=== PATIENT | female | born 1945 | race Caucasian/White ===

== ENCOUNTER 2017-04-15 18:15 | Emergency (ER) | payer MEDICARE ==
[2017-04-15 18:21] VITALS: BP 134/82; PULSE 84; RESP 18; TEMP 97.2
--- NOTE | 2017-04-15 19:13 | XR ---
Fifth digit right hand HISTORY: Trauma and pain 3 views of the fifth digit of the right hand No comparisons There are degenerative changes present and noted incidentally. Soft tissue swelling is present. There is an oblique fracture through the midportion of the proximal phalanx of the fifth digit of the righ t hand. There is right displacement and angulation. IMPRESSION: Fifth digit fracture
--- NOTE | 2017-04-15 19:15 | ED ---
General Adult HPI - General Chief complaint: Extremity Injury, Upper Stated complaint: Pinky Injury Time Seen by Provider: 04/15/17 18:50 Source: patient Mode of arrival: ambulatory Limitations: no limitations - History of Present Illness Initial comments: This is a 71-year-old female who presents to the emergency department with chief complaint of right pinky injury. Patient states that at approximately 3 PM this afternoon she was getting out of her car and her pinky got caught on something as she was closing the door. She states that she felt a "crack." Patient states that over the last few hours her pinky has become swollen and bruised. Currently rates her pain as 3/10. Denies fever, chills, chest pain, shortness of breath, abdominal pain, nausea or vomiting, constipation or diarrhea, dysuria or hematuria, numbness or tingling, headache or vision changes. - Related Data Home Medications Medication Instructions Recorded Confirmed Albuterol Sulfate [Proair Hfa] 2 puff INHALATION RT-Q6H PRN 04/12/16 04/16/16 Calcium Carbonate [Calcium] 600 mg PO DAILY 04/12/16 04/16/16 Hydrocodone/Acetaminophen [[place]roy 1 tab PO TID 04/12/16 04/16/16 7.5-325] Ibuprofen [Motrin] 400 - 800 mg PO BID PRN 04/12/16 04/16/16 Losartan Potassium [Cozaar] 50 mg PO DAILY 04/12/16 04/16/16 Multivit-Min/FA/Lycopen/Lutein 1 tab PO DAILY 04/12/16 04/16/16 [Centrum Silver Tablet] Omeprazole [PriLOSEC] 20 mg PO AC-BRKFST 04/12/16 04/16/16 Zolpidem [Ambien] 10 mg PO HS 04/12/16 04/16/16 Solifenacin Succinate [Vesicare] 5 mg PO DAILY 04/16/16 04/16/16 DULoxetine HCL [Cymbalta] 30 mg PO BID 04/15/17 04/15/17 Fenofibrate,Micronized 134 mg PO DAILY 04/15/17 04/15/17 [Fenofibrate] Allergies Allergy/AdvReac Type Severity Reaction Status Date / Time cefadroxil [From [facility] [place]] Allergy Rash/Hives Verified 04/15/17 18:18 Review of Systems ROS Statement: Those systems with pertinent positive or pertinent negative responses have been documented in the HPI. ROS Other: All systems not noted in ROS Statement are negative. Past Medical History Past Medical History: Asthma, Fibromyalgia, GERD/Reflux, Hyperlipidemia, Hypertension, Osteoarthritis (OA) Additional Past Medical History / Comment(s): Hypertension and hypertensive cardio vascular disease, hyperlipidemia, mitral regurgitation, fibromyalgia, ALLERGIC rhinitis, asthma, obesity, chronic low back pain, carotid artery disease, osteoarthritis, overactive bladder, vitamin D deficiency. History of Any Multi-Drug Resistant Organisms: None Reported Additional Past Surgical History / Comment(s): rt knee replacement, rt wrist fusion, isha cataracts, breast biopsy,TOTAL RT HIP and rotator cuff tear repair bilaterally . Past Psychological History: No Psychological Hx Reported Smoking Status: Never smoker Past Alcohol Use History: Occasional Past Drug Use History: None Reported - Past Family History Mother Family Medical History: Cancer, Coronary Artery Disease (CAD) (Mother at age of 86 from heart disease and colon cancer.) Father Family Medical History: Cancer (Father at age of 86 from lung cancer and colon cancer.) Brother(s) Family Medical History: Cancer (Patient had 3 brothers one with colon cancer the other one with CAD/[place] and the third one with diabetes. Decided to.) Sister(s) Family Medical History: No Reported History (Patient has one sister major medical problems.) General Exam - General Exam Comments Initial Comments: General: Awake and alert, well-developed; in no apparent distress. HEENT: Head atraumatic, normocephalic. Pupils are equal, round and reactive to light. Extraocular movements intact. Neck: Supple. Normal ROM. Cardiovascular: Regular rate and rhythm. No murmurs, rubs or gallops. Chest symmetrical. Respiratory: Lungs clear to auscultation bilaterally. No wheezes, rales or rhonchi. Normal respiratory effort with no use of accessory muscles. Musculoskeletal: Right fifth digit is moderately swollen with ecchymosis throughout. Range of motion is limited due to swelling and pain. Sensation is intact. Radial pulses 2+ equal and palpable bilaterally. Skin: [place], warm and dry without rashes or lesions. Neurological: Alert and oriented x3. CN II-XII grossly intact. Speech is fluent and answers are appropriate. No focal neuro deficits. Psychiatric: Normal mood and affect. No overt signs of depression or anxiety noted. Limitations: no limitations Course Vital Signs 04/15/17 18:18 Temperature 97.2 F L Pulse Rate 84 Respiratory 18 Rate Blood Pressure 134/82 O2 Sat by Pulse 97 Oximetry Medical Decision Making - Medical Decision Making This is a 71-year-old female who presents with complaint of right fifth digit injury. X-ray reveals a fracture of the proximal phalanx of the fifth digit. Patient was placed in a short arm OCL ulnar gutter splint. Neurovascular is intact. Patient tolerated this well. Patient will be discharged home. Patient reports that she has seen Dr. Yaron Nicholas in the past for other hand issues and would like a referral to him for followup. Patient refuses pain medication as she states she has fibromyalgia and has a prescription for Troy at home. Patient is in agreement to the plan and is in no acute distress at this time. All questions were answered. - Radiology Data Radiology results: report reviewed X-ray right finger findings: There are degenerative changes present and noted incidentally. Soft tissue swelling is present. There is an oblique fracture through the midportion of the proximal phalanx of the fifth digit of the right hand. There is right displacement and angulation. Disposition Clinical Impression: Fracture, finger, distal phalanx Disposition: HOME SELF-CARE Condition: Good Instructions: Finger Fracture (ED) Additional Instructions: Please follow up with orthopedics within 1-2 days. Contact information provided. Please follow up with primary care provider within 1-2 days. Return to emergency department if symptoms should worsen or any concerns arise. Referrals: Jacqueline Berry MD [Primary Care Provider] - 1-2 days Yaron Nicholas DO [Doctor of Osteopathic Medicine] - 1-2 days Time of Disposition: 19:39
== END 2017-04-15 19:45 | disposition home or self-care (01) ==
LOC: EC 18:15
DX: S62.616A Displaced fracture of proximal phalanx of right little finger, initial encounter for closed fracture (principal); E78.5 Hyperlipidemia, unspecified; I10 Essential (primary) hypertension; I25.10 Atherosclerotic heart disease of native coronary artery without angina pectoris; K21.9 Gastro-esophageal reflux disease without esophagitis; N32.81 Overactive bladder; M79.7 Fibromyalgia; E66.9 Obesity, unspecified; Z79.891 Long term (current) use of opiate analgesic; Z79.899 Other long term (current) drug therapy; Z68.34 Body mass index [BMI] 34.0-34.9, adult; W22.8XXA Striking against or struck by other objects, initial encounter; Y93.89 Activity, other specified
CPT/HCPCS: 29125; 99283

== ENCOUNTER 2017-10-16 10:00 | Emergency (ER) | payer MEDICARE ==
--- NOTE | 2017-10-16 12:00 | ED ---
Extremity Problem HPI - General Chief complaint: Extremity Problem,Nontraumatic Stated complaint: LEFT KNEE PAIN Time Seen by Provider: 10/16/17 11:20 Source: patient, RN notes reviewed Mode of arrival: ambulatory Limitations: physical limitation - History of Present Illness Initial comments: This is a 71-year-old female presents emergency Department with chief complaint of left knee pain. She's been having worsening pain last few weeks especially last 10 days. She states that she initially saw her primary care physician told her she most likely has a Bartholomew's cyst. She complained of Cramping and pain behind her knee. Patient physician at that time. Patient states roughly 10 days ago she stepped wrong and felt that she may have injured it. She's been babying it, icing and elevating and using her cane. Patient states that symptoms are not getting better she has an appointment coming up with orthopedics. She states that she's had problems with her regular past but nothing the left. - Related Data Home Medications Medication Instructions Recorded Confirmed Albuterol Sulfate [Proair Hfa] 2 puff INHALATION RT-Q6H PRN 04/12/16 10/16/17 Calcium Carbonate [Calcium] 600 mg PO DAILY 04/12/16 10/16/17 Hydrocodone/Acetaminophen [Bendena 1 tab PO TID PRN 04/12/16 10/16/17 7.5-325] Losartan Potassium [Cozaar] 50 mg PO DAILY 04/12/16 10/16/17 Omeprazole [PriLOSEC] 20 mg PO AC-BRKFST 04/12/16 10/16/17 Zolpidem [Ambien] 10 mg PO HS 04/12/16 10/16/17 DULoxetine HCL [Cymbalta] 30 mg PO BID 04/15/17 10/16/17 Fenofibrate Nanocrystallized 145 mg PO DAILY 10/16/17 10/16/17 [Tricor] Mirabegron [Myrbetriq] 25 mg PO DAILY 10/16/17 10/16/17 Multivitamins, Thera [Multivitamin 1 tab PO DAILY 10/16/17 10/16/17 (formulary)] Previous Rx's Medication Instructions Recorded Hydrocodone/Acetaminophen [Bendena 1 tab PO Q6HR PRN #12 tab 10/16/17 5-325] Allergies Allergy/AdvReac Type Severity Reaction Status Date / Time cefadroxil [From [facility]] Allergy Rash/Hives Verified 10/16/17 11:29 Review of Systems ROS Statement: Those systems with pertinent positive or pertinent negative responses have been documented in the HPI. ROS Other: All systems not noted in ROS Statement are negative. Past Medical History Past Medical History: Asthma, Fibromyalgia, GERD/Reflux, Hyperlipidemia, Hypertension, Osteoarthritis (OA) Additional Past Medical History / Comment(s): Hypertension and hypertensive cardio vascular disease, hyperlipidemia, mitral regurgitation, fibromyalgia, ALLERGIC rhinitis, asthma, obesity, chronic low back pain, carotid artery disease, osteoarthritis, overactive bladder, vitamin D deficiency. History of Any Multi-Drug Resistant Organisms: None Reported Additional Past Surgical History / Comment(s): rt knee replacement, rt wrist fusion, isha cataracts, breast biopsy,TOTAL RT HIP and rotator cuff tear repair bilaterally . Past Psychological History: No Psychological Hx Reported Smoking Status: Never smoker Past Alcohol Use History: Occasional Past Drug Use History: None Reported - Past Family History Mother Family Medical History: Cancer, Coronary Artery Disease (CAD) (Mother at age of 86 from heart disease and colon cancer.) Father Family Medical History: Cancer (Father at age of 86 from lung cancer and colon cancer.) Brother(s) Family Medical History: Cancer (Patient had 3 brothers one with colon cancer the other one with CAD/[place] and the third one with diabetes. Decided to.) Sister(s) Family Medical History: No Reported History (Patient has one sister major medical problems.) General Exam Limitations: physical limitation General appearance: alert, in no apparent distress Respiratory exam: Present: normal lung sounds bilaterally. Absent: respiratory distress, wheezes, rales, rhonchi, stridor Cardiovascular Exam: Present: regular rate, normal rhythm, normal heart sounds. Absent: systolic murmur, diastolic murmur, rubs, gallop, clicks Extremities exam: Present: other (Left knee patient has some medial joint tenderness no pain with range of motion neurovascular intact there is mild swelling no the left leg) Skin exam: Present: warm, dry, intact, normal color. Absent: rash Course Vital Signs 10/16/17 10:04 Temperature 97.8 F Pulse Rate 83 Respiratory 20 Rate Blood Pressure 142/67 O2 Sat by Pulse 96 Oximetry Medical Decision Making - Medical Decision Making This a 71-year-old female presents emergency department chief complaint of left knee pain. Patient ultrasound which is negative for acute DVT. Patient x-ray shows mild narrowing of the tricompartment region. Patient may have underlying meniscus injury. Patient has an appointment with orthopedics. Patiently discharges with Tylenol according for pain control patient denied ibuprofen. Return parameters discussed. Disposition Clinical Impression: Left knee pain, Strain of left knee Disposition: HOME SELF-CARE Condition: Stable Instructions: Knee Pain (ED) Additional Instructions: Follow-up later schedule point with orthopedics.Please return to the Emergency Department if symptoms worsen or any other concerns. Prescriptions: Hydrocodone/Acetaminophen [Bendena 5-325] 1 tab PO Q6HR PRN #12 tab PRN Reason: Pain Is patient prescribed a controlled substance at discharge?: Yes If prescribed controlled substance>3 days was MAPS reviewed?: No When asked, does pt state using other controlled substances?: No Referrals: Jacqueline Berry MD [Primary Care Provider] - 1-2 days Time of Disposition: 13:26
--- NOTE | 2017-10-16 13:03 | US ---
EXAMINATION TYPE: US venous doppler duplex LE LT DATE OF EXAM: 10/16/2017 12:47 PM COMPARISON: NONE CLINICAL HISTORY: Pain. Left leg pain x 10 days SIDE PERFORMED: Left TECHNIQUE: The lower extremity deep venous system is examined utilizing real time linear array sonog kym with graded compression, doppler sonography and color-flow sonography. VESSELS IMAGED: External Iliac Vein (EIV) Common Femoral Vein Deep Femoral Vein Greater Saphenous Vein * Femoral Vein Popliteal Vein Small Saphenous Vein * Proximal Calf Veins (* superficial vessels) Grayscale, color doppler, spectral doppler imaging performed of the deep veins of the lower extremiti es. There is normal flow, compressibility, vascular waveforms. Left Leg: Appears negative for DVT IMPRESSION: No evidence for DVT at this time.
--- NOTE | 2017-10-16 13:10 | XR ---
EXAMINATION TYPE: XR knee complete LT DATE OF EXAM: 10/16/2017 CLINICAL HISTORY: pain TECHNIQUE: Three views of the left knee are obtained. COMPARISON: None. FINDINGS: There is no acute fracture/dislocation. The tri-compartment joint spaces appear moderatel y narrowed. The overlying soft tissue appears unremarkable. IMPRESSION: There is no acute fracture or dislocation ICD 10 NO FRACTURE, INITIAL EVALUATION
[2017-10-16 13:34] VITALS: BP 128/62; PULSE 74; RESP 18; TEMP 98.4
== END 2017-10-16 13:34 | disposition home or self-care (01) ==
LOC: EC 10:00
DX: S86.812A Strain of other muscle(s) and tendon(s) at lower leg level, left leg, initial encounter (principal); M79.89 Other specified soft tissue disorders; K21.9 Gastro-esophageal reflux disease without esophagitis; E78.5 Hyperlipidemia, unspecified; I10 Essential (primary) hypertension; E66.9 Obesity, unspecified; Z68.33 Body mass index [BMI] 33.0-33.9, adult; Z79.899 Other long term (current) drug therapy; Z88.1 Allergy status to other antibiotic agents
CPT/HCPCS: 99284

== ENCOUNTER → 2018-04-01 | Outpatient (CLI) | payer MEDICARE ==
--- NOTE | 2018-04-01 15:43 | BD ---
EXAMINATION TYPE: Axial Bone Density DATE OF EXAM: 04/01/2018 COMPARISON: 03/08/2016 CLINICAL HISTORY: 72-year-old female osteoporosis, postmenopausal screening Height: 65 IN Weight: 224 LBS RISK FACTORS HISTORY OF: Surgery to Hip(right) WRIST (right): When: HIP 2015; WRIST 1993 Active: YES Postmenopausal woman: AGE 51 Take estrogen and/or progesterone medications: NOT NOW How long: HAD A PATCH FROM AGE 50-60 MEDICATIONS: Additional Medications: CALCIUM, CYMBALTA, TRICOR, LOSARTAN, AMBIEN, VITAMIN, MYRBETRIQ, EXAM MEASUREMENTS: Bone mineral densitometry was performed using the [employer] System. Bone mineral density as measured about the Lumbar spine is: ----- L1-L4(G/cm2): 1.405 T Score Values are as follows: ----- L2: 1.9 ----- L3: 2.3 ----- L4: 1.6 ----- L1-L4: 1.9 Bone mineral density has: Increased 1.1% since study of: 03/08/2016 Bone mineral density about the L hip (g/cm2): 0.856 T Score values are as follows: -----L Neck: -1.3 -----L Total: -0.9 Bone mineral density has: Decreased -5.1% since study of: 03/08/2016 IMPRESSION: Osteopenia (T Score between -2.5 and -1). There is slightly increased risk of fracture and the patient may be considered for treatment. Re-Screen 2-5 years. NOTE: T-SCORE=SD OF THE YOUNG ADULT MEAN.
--- NOTE | 2018-04-03 10:23 | MM ---
Reason for exam: screening (asymptomatic). Last mammogram was performed 1 year ago. History: Patient is postmenopausal. Benign right mammotome panel of the right breast, November 19, 2010. 3 benign excisional biopsies of the left breast. 4 benign excisional biopsies of the right breast. Took estrogen for 10 years beginning at age 50. Physical Findings: A clinical breast exam by your physician is recommended on an annual basis and results should be correlated with mammographic findings. MG 3D Screening Mammo W/Cad Bilateral CC and MLO view(s) were taken. Prior study comparison: March 24, 2017, bilateral MG 3d screening mammo w/cad. March 18, 2016, bilateral MG 3d screening mammo w/cad. The breast tissue is heterogeneously dense. This may lower the sensitivity of mammography. Finding: There is a focal high rchitectural distortion in the middle position of the left breast MLO view. New finding since March 24, 2017 and March 18, 2016. ASSESSMENT: Incomplete: need additional imaging evaluation, BI-RAD 0 RECOMMENDATION: Special view mammogram of the left breast. If lesion persists on supplemental views, image directed ultrasound is recommended. [facility] will attempt to contact patient to return for supplemental views and ultrasound if indicated.
== END | disposition home or self-care (01) ==
LOC: RADMAMWWP 14:33
PROVIDERS: ATTEND Internal Medicine
DX: Z12.31 Encounter for screening mammogram for malignant neoplasm of breast (principal); M85.88 Other specified disorders of bone density and structure, other site
CPT/HCPCS: 77063; 77067; 77080

== ENCOUNTER → 2018-04-16 | Outpatient (CLI) | payer MEDICARE ==
--- NOTE | 2018-04-16 13:35 | MM ---
Reason for exam: additional evaluation requested from abnormal screening. Last mammogram was performed less than 1 month ago. History: Patient is postmenopausal. Benign right mammotome panel of the right breast, November 19, 2010. 3 benign excisional biopsies of the left breast. 4 benign excisional biopsies of the right breast. Took estrogen for 10 years beginning at age 50. Physical Findings: Nurse did not find any significant physical abnormalities on exam. MG 3D Work Up W/Cad LT Spot compression CC, spot compression MLO, and ML view(s) were taken of the left breast. Prior study comparison: April 01, 2018, bilateral MG 3d screening mammo w/cad. March 24, 2017, bilateral MG 3d screening mammo w/cad. There are scattered fibroglandular densities. The questioned asymmetric density disperses on additional views. These results were verbally communicated with the patient and result sheet given to the patient on 04/16/18. ASSESSMENT: Negative, BI-RAD 1 RECOMMENDATION: Return to routine screening mammogram schedule for both breasts.
== END | disposition home or self-care (01) ==
LOC: RADMAMWWP 12:53
PROVIDERS: ATTEND Internal Medicine
DX: R92.8 Other abnormal and inconclusive findings on diagnostic imaging of breast (principal)
CPT/HCPCS: 77065; G0279; 77061

== ENCOUNTER 2018-06-19 12:30 | Inpatient (IN) | payer MEDICARE ==
[2018-07-15 15:23] VITALS: BMI 37.0
[2018-07-20] MEDS ORDERED: TRANEXAMIC ACID 1,000 MG in SODIUM CHLORIDE 0.9% 50 ML IVPB ONE ×4 (05:00)
[2018-07-20] MEDS ORDERED: ceFAZolin IN SWFI 2 GM/20 ML SYRINGE IVP ONE (05:00)
[2018-07-20] MEDS ORDERED: ACETAMINOPHEN TAB 500 MG TAB PO ONE (05:00)
[2018-07-20] MEDS ORDERED: MELOXICAM 7.5 MG TAB PO ONE (05:00)
[2018-07-20] MEDS ORDERED: HYDROmorphone 0.5 MG/0.5 ML SYRINGE IVP PRN ×4 (07:09→12:05)
[2018-07-20] MEDS ORDERED: ONDANSETRON 4 MG/2 ML VIAL IVP ONE (07:09)
[2018-07-20] MEDS ORDERED: SCOPOLAMINE 1.5MG/72HR PATCH TRANSDERM ONE (07:09)
[2018-07-20] MEDS ORDERED: MIDAZOLAM (PF) 2 MG/2 ML VIAL IV PRN (07:09)
[2018-07-20] MEDS ORDERED: LACTATED RINGERS 1,000 ML IV ONE ×3 (10:23→15:11)
[2018-07-20] MEDS ORDERED: LIDOCAINE 1% 20 ML VIAL (10MG/ML) FOR IV START INTRADERMA ONE (10:24)
[2018-07-20] MEDS ORDERED: ROPIVACAINE 246.25 MG, EPINEPHrine 0.5 MG, KETOROLAC 30 MG, cloNIDine HCL/PF 80 MCG, WA... MISCELLANE ONE ×5 (10:27)
[2018-07-20] MEDS ORDERED: DEXAMETHASONE SOD PHOS (MDV) 100 MG/10 ML VIAL IVP ONE (10:44)
[2018-07-20] MEDS ORDERED: fentaNYL (PF) 50 MCG/ML 2 ML AMP IVP ONE (10:50)
[2018-07-20] MEDS ORDERED: ROPIVACAINE 1,100 MG, SODIUM CHLORIDE 0.9% 500 ML 330 ML MISCELLANE PRN ×2 (11:46)
--- NOTE | 2018-07-20 11:46 | P.ONQ ---
Anesthesiology Proc Note - PNB - Peripheral Nerve Block Performed Left Adductor Canal Infusion Time Out Performed: Yes Procedure Start Time: 10:50 Procedure Stop Time: 11:05 Indication: Acute Post-Operative Pain, Analgesia, Requested by physician Sedation Type: Sedate with meaningful contact maintained Preparation: Sterile Dressing Position: Supine Catheter: Indwelling Needle Types: On-Q Needle Size: 100mm (4") Needle Gauge: 20 Technique: Ultrasound Injectate: 0.5% Ropivacaine (see comment for volume) (30 ml total)
[2018-07-20] MEDS ORDERED: ONDANSETRON 4 MG/2 ML VIAL IVP PRN (12:05)
[2018-07-20] MEDS ORDERED: hydrOXYzine PAMOATE 25 MG CAP PO PRN (12:05)
[2018-07-20] MEDS ORDERED: DIAZEPAM 5 MG TAB PO PRN (12:05)
[2018-07-20] MEDS ORDERED: MAGNESIUM HYDROXIDE 2,400 MG/10 ML CUP PO PRN (12:05)
[2018-07-20] MEDS ORDERED: NA PHOS,M-B/NA PHOS,DI-BA 133 ML ENEMA RECTAL PRN (12:05)
[2018-07-20] MEDS ORDERED: HYDROcodone/APAP 5-325MG 1 EACH TAB PO PRN (12:05)
[2018-07-20] MEDS ORDERED: BISACODYL 10 MG SUPP RECTAL PRN (12:05)
[2018-07-20] MEDS ORDERED: NALOXONE 0.4 MG/ML 1 ML VIAL IV PRN (12:05)
[2018-07-20] MEDS ORDERED: SODIUM CHLORIDE 0.9% 100 ML BAG ONE (12:33)
[2018-07-20] MEDS ORDERED: TRANEXAMIC ACID 1,000 MG/10 ML VIAL ONE (12:33)
[2018-07-20] MEDS ORDERED: WATER FOR INJECTION, STERILE 10 ML VIAL IV ONE (12:33)
[2018-07-20] MEDS ORDERED: ePHEDrine SULFATE/0.9% NACL/PF 50 MG/5 ML SYRINGE IV ONE (12:33)
[2018-07-20] MEDS ORDERED: PROPOFOL 10 MG/ML 20 ML VIAL IV ONE (12:33)
[2018-07-20] MEDS ORDERED: MIDAZOLAM 2 MG/2 ML VIAL ONE (12:33)
[2018-07-20] MEDS ORDERED: LIDOCAINE 1% INJ 10MG/ML (20 ML MDV) ONE (12:33)
[2018-07-20] MEDS ORDERED: ceFAZolin 3,000 MG in SODIUM CHLORIDE 0.9% IRRIGATIO 3,000 ML IRRIGATION ONE (13:08)
--- NOTE | 2018-07-20 14:18 | P.OP ---
Date of Procedure: 07/20/18 Preoperative Diagnosis: Severe osteoarthritis left knee Postoperative Diagnosis: Severe osteoarthritis left knee Procedure(s) Performed: Left total knee arthroplasty Implants: Basilio and Nephew Journey II CR Oxinium cruciate retaining femoral component size 7, left Basilio & Nephew Journey left nonporous tibial baseplate size 5 Basilio & Nephew Journey II, XLPE CR articular insert, size 9 mm, Size 5-6 left Basilio & Nephew Journey BCS resurfacing oval patellar component, 32 mm All components were cemented using Palacos R bone cement.. The articulation is Oxinium on polyethylene. Anesthesia: spinal Surgeon: Zack Nicholas General Ophthalmologist #1: Jessenia Leahy Estimated Blood Loss (ml): 25 Pathology: other (Bone and cartilage) Condition: stable Disposition: PACU Indications for Procedure: After failure of conservative treatment we discussed the surgical and nonsurgical treatment options at length. Patient wishes to proceed with a total knee arthroplasty. Complications specific to this procedure were discussed at length, including but not limited to infection, bleeding, stiffness , and nerve injury. Patient is aware of all these complications and informed consent was obtained Operative Findings: The operative findings are consistent with severe osteoarthritis of the left knee Description of Procedure: Patient was seen in the preoperative area consent was reviewed and operative site was marked with a skin marker. An adductor canal pain catheter was placed by anesthesia in the preoperative area. Patient was then brought to the operating room and given preoperative antibiotics intravenously. A spinal anesthetic was administered by the anesthesia department. A tourniquet was placed on the upper thigh and the lower extremity was prepped and draped in usual sterile fashion. A gram of transexamic acid was given. A universal timeout was then performed which confirmed the patient's name, surgical site, ALLERGIES, and consent. The lower extremity was then exsanguinated and tourniquet was inflated to 250 mmHg. A standard and anterior midline approach to the knee was performed. The skin and subcutaneous tissue was dissected down to the patellar tendon. A medial parapatellar arthrotomy was then performed. The knee was then extended, the patellar was everted, and the knee was again flexed. Anterior horns of both menisci were excised, and a release was performed to the posterior medial aspect of the knee. On gross visual inspection, there was complete loss of articular cartilage in the medial and patellofemoral joint spaces. There was also significant cartilage damage in the lateral compartment. There were multiple periarticular osteophytes which were then removed with a Ronguer. The femoral canal was then opened with the appropriate drill, and the intramedullary femoral cutting guide was then placed and set for 5 of valgus. The distal femoral cutting block was then pinned in place, and the distal femur was then cut. The cutting block was then removed and the cut was checked for flatness. Next, the sizing guide was then placed and set for 3 external rotation based off of the epicondylar axis and Whitesides line. After the femur was sized, the appropriate 4-in-1 cutting block was then pinned in place. The anterior condyles were cut without notching. The posterior and chamfer cuts were performed while protecting the collateral ligaments. The cutting block was then removed, and the femoral canal was plugged with autologous bone. Attention was then directed to the tibia. The remaining ACL was removed with a Ronguer, and the tibia was then gently subluxed forward with a large bent knee retractor. Any remaining menisci was excised. The posterior lateral corner was cauterized in order to cauterize the lateral geniculate artery. The extra medullary tibial cutting guide was then placed, set for the appropriate rotation , slope, and depth of resection. The proximal tibia cutting guide was then pinned in place. Proximal tibia was then cut and sized. Next trials were then placed with the appropriate-sized insert. The knee was able to fully extend and flex to 130 and was stable throughout all range of motion. The knee was then extended, patella everted. Patella was then measured, and then using an osteotomy guide, the patella was cut at the appropriate level. The patella was then measured and drilled and the patella trial was then placed. The knee was then taken through range of motion with the patella trial and the patella tracked normally. The knee was then extended patella trial was then removed and the patella was everted. Knee was then flexed and lug holes were drilled through the femoral trial and the femoral trial was then removed. The tibial was then exposed, and the tibial broach guide was then pinned in place after it was set for the appropriate rotation to allow for the most coverage without overhang. The tibia was then reamed and broached. The cut surfaces of bone were then irrigated with pulsatile lavage. The posterior structures were injected with the ropivacaine solution. The knee was also irrigated with Irrisept solution. The components were then opened, the cement was mixed, and the components were then cemented in place. The cement was allowed to harden with the knee in full extension. While the cement was hardening, the remaining soft tissues were then injected with a ropivacaine solution, which consisted of 246.25 mg of ropivacaine, 0.5 mg of epinephrine, 30 mg of Toradol, 80 g of clonidine, and 48.45 mL of sterile water, for a total of 100 mL of fluid injected. After the cemented hardened. The tourniquet was released, and hemostasis was obtained. A second gram of transexamic acid was given. The knee was again irrigated. The knee was again taken through range of motion and found to be stable throughout all range of motion of 0-130 , and the patella tracked normally. The fascia was then closed with #2 strata fix suture. The subcutaneous tissue was closed with 3-0 Vicryl and 3-0 strata fix. Dermabond glue was used for the skin and placed with the knee in flexion. The patient was placed in a sterile silver dressing. Patient was then transferred to recovery room in stable condition. The physical laboratory assistant IVY Lock was required due the complexity surgery and the need for a skilled surgical scrub technologist. She assisted in positioning, draping, retraction, and closure of the wound.
--- NOTE | 2018-07-20 15:09 | XR ---
EXAMINATION TYPE: XR knee limited LT DATE OF EXAM: 07/20/2018 COMPARISON: NONE HISTORY: 72-year-old female evaluation for postoperative abnormality and alignment TECHNIQUE: 2 views FINDINGS: Images show placement of left total knee arthroplasty. Both distal femoral and proximal tibial compon ents of the prosthesis appear well seated without periprosthetic fracture. Alignment grossly anatomic . Anterior soft tissue swelling with soft tissue air as well as intra-articular air and joint effusio n compatible with recent operation. IMPRESSION: Uncomplicated postoperative appearance left total knee arthroplasty.
[2018-07-20] MEDS: LACTATED RINGERS 1,000 ML IV SCH (18:14)
[2018-07-20] MEDS: SODIUM CHLORIDE 0.9% 1,000 ML IV SCH (19:23)
[2018-07-20] MEDS: ASPIRIN 325 MG TAB PO SCH (20:27)
[2018-07-20] MEDS: ceFAZolin IN SWFI 2 GM/20 ML SYRINGE IVP SCH (20:27)
[2018-07-20] MEDS ORDERED: SENNOSIDES-DOCUSATE SODIUM 1 EACH TAB PO SCH (21:00)
[2018-07-20] MEDS: HYDROcodone/APAP 5-325MG 1 EACH TAB PO PRN (22:10)
[2018-07-21] MEDS: ceFAZolin IN SWFI 2 GM/20 ML SYRINGE IVP SCH (04:21)
[2018-07-21] MEDS: SODIUM CHLORIDE 0.9% 1,000 ML IV SCH (04:38)
[2018-07-21] MEDS: LACTATED RINGERS 1,000 ML IV SCH (04:44)
--- NOTE | 2018-07-21 07:10 | P.PN ---
Progress Note - Text Progress Note Date: 07/21/18 The patient is status post[ 1] adductor canal catheter placement. The catheter was placed for postoperative pain control, status post total left knee arthroplasty. Ropivacaine 0.2% is infusing at[ 6] mLs per hour. The patient has no complaints of[ left] lower extremity numbness or weakness. Patient's VAS score is[ 3]-10. Assessment: Patient's adductor canal catheter is in place and working appropriately. Plan: continue infusion and adjust it as needed.
[2018-07-21 08:13] VITALS: BP 120/65; PULSE 79; RESP 14; TEMP 98.4
[2018-07-21] MEDS: ASPIRIN 325 MG TAB PO SCH (08:18)
[2018-07-21] MEDS: HYDROcodone/APAP 5-325MG 1 EACH TAB PO PRN (08:19)
[2018-07-21 08:31] LABS: Basophils % (A) 0 %; Eosinophils % (A) 0 %; HCT 35.5 % (34.0-46.0); HGB 11.4 gm/dL (11.4-16.0); Lymphocytes # (A) 1.9 k/uL (1.0-4.8); Lymphocytes % (A) 17 %; MCH 29.1 pg (25.0-35.0); MCHC 32.2 g/dL (31.0-37.0); MCV 90.4 fL (80.0-100.0); Mean Platelet Volume 6.2; Monocytes # (A) 0.6 k/uL (0-1.0); Monocytes % (A) 5 %; Neutrophils # (A) 8.4 k/uL (1.3-7.7); Neutrophils % (A) 76 %; Platelet Count 231 k/uL (150-450); RBC 3.92 m/uL (3.80-5.40); RDW 12.9 % (11.5-15.5); WBC 11.1 k/uL (3.8-10.6)
[2018-07-21] MEDS ORDERED: MELOXICAM 7.5 MG TAB PO SCH (09:00)
[2018-07-21] MEDS ORDERED: HYDROcodone/APAP 7.5-325MG 1 EACH TAB PO PRN ×2 (09:52)
--- NOTE | 2018-07-21 09:56 | P.DS ---
Providers Date of admission: 07/20/18 09:57 Expected date of discharge: 07/21/18 Attending physician: Zack Nicholas Consults: 07/20/18 12:05 Consult Physician Routine Consulting Provider: Jacqueline Berry Consult Reason/Comments: medical management Do you want consulting provider notified?: Yes Primary care physician: Jacqueline Berry - Discharge Diagnosis(es) (1) Primary osteoarthritis of left knee Current Visit: Yes Status: Acute (2) Status post total left knee replacement Current Visit: Yes Status: Acute Hospital Course: This is a 72-year-old female with known history of degenerative arthritis of the left knee. The patient presents for evaluation. After discussion and consideration patient elects to proceed with total knee arthroplasty. The patient is seen preoperatively by Dr. Nicholas and medically cleared for surgery by their primary care physician. Patient is admitted to [facility] on 07/20/2018 for total knee arthroplasty. The procedures performed without complication or sequelae. The patient is doing well postoperatively. Labs and vital signs are stable on day of discharge. On day of discharge patient's knee incision is healing well. There is minimal erythema. There is no drainage noted at this time. There is minimal soft tissue swelling to the knee. Patient has full foot and ankle motion without difficulty or pain. Neurovascular status to the left lower extremity is intact. Patient is discharged home in good condition. Please see med rec for accurate list of home medications. Plan - Discharge Summary Discharge Rx Participant: Yes New Discharge Prescriptions: New Aspirin 325 mg PO BID #60 tab HYDROcodone/APAP 7.5-325MG [Eagar 7.5-325] 1 - 2 tab PO Q4-6H PRN #84 tab PRN Reason: Pain Sennosides [Senokot] 1 tab PO BID #60 tablet No Action Omeprazole [PriLOSEC] 20 mg PO QAM Losartan Potassium [Cozaar] 50 mg PO QAM Calcium Carbonate [Calcium] 600 mg PO DAILY Albuterol Sulfate [Proair Hfa] 2 puff INHALATION RT-Q6H PRN PRN Reason: Shortness Of Breath Hydrocodone/Acetaminophen [Eagar 7.5-325] 1 tab PO BID PRN PRN Reason: Pain DULoxetine HCL [Cymbalta] 30 mg PO BID Fenofibrate Nanocrystallized [Tricor] 145 mg PO DAILY Multivit-Min/FA/Lycopen/Lutein [Centrum Silver Tablet] 1 each PO DAILY Zolpidem Tartrate [Ambien Cr] 12.5 mg PO HS Ibuprofen [Motrin Ib] 1 - 3 tab PO BID Mirabegron [Myrbetriq] 50 mg PO DAILY Discharge Medication List Albuterol Sulfate [Proair Hfa] 2 puff INHALATION RT-Q6H PRN 04/12/16 [History] Calcium Carbonate [Calcium] 600 mg PO DAILY 04/12/16 [History] Hydrocodone/Acetaminophen [Eagar 7.5-325] 1 tab PO BID PRN 04/12/16 [History] Losartan Potassium [Cozaar] 50 mg PO QAM 04/12/16 [History] Omeprazole [PriLOSEC] 20 mg PO QAM 04/12/16 [History] DULoxetine HCL [Cymbalta] 30 mg PO BID 04/15/17 [History] Fenofibrate Nanocrystallized [Tricor] 145 mg PO DAILY 07/15/18 [History] Multivit-Min/FA/Lycopen/Lutein [Centrum Silver Tablet] 1 each PO DAILY 07/15/18 [History] Ibuprofen [Motrin Ib] 1 - 3 tab PO BID 07/20/18 [History] Mirabegron [Myrbetriq] 50 mg PO DAILY 07/20/18 [History] Zolpidem Tartrate [Ambien Cr] 12.5 mg PO HS 07/20/18 [History] Aspirin 325 mg PO BID #60 tab 07/21/18 [Rx] HYDROcodone/APAP 7.5-325MG [Eagar 7.5-325] 1 - 2 tab PO Q4-6H PRN #84 tab [Rx] Sennosides [Senokot] 1 tab PO BID #60 tablet 07/21/18 [Rx] Follow up Appointment(s)/Referral(s): Zack Nicholas DO [Doctor of Osteopathic Medicine] - 2 Weeks Ambulatory/Diagnostic Orders: Continuous Passive Motion (CPM) Machine [DME.AMB1] Time Frame: 3 Weeks, Location : None Selected Activity/Diet/Wound Care/Special Instructions: Weightbearing as tolerated with a walker. CPM 5-6h daily. Leave dressing intact. May be removed by home care nurse in 10 days. May shower with dressing on. Please follow up with [facility] and call with any questions or concerns, . Discharge Disposition: HOME WITH HOME HEALTH SERVICES
== END 2018-07-21 12:19 | disposition home health service (06) | DRG 470 ==
LOC: 2ORMAIN 07-20 09:57 → 4SSUR 07-20 14:33
PROVIDERS: ADMIT Orthopaedic Surgery; ATTEND Orthopaedic Surgery
PROC: 0SRD069 Replacement of Left Knee Joint with Oxidized Zirconium on Polyethylene Synthetic Substitute, Cemented, Open Approach (ICD-10-PCS; principal; 2018-07-20 12:00)
DX: M17.12 Unilateral primary osteoarthritis, left knee (principal); I10 Essential (primary) hypertension; K21.9 Gastro-esophageal reflux disease without esophagitis; J45.909 Unspecified asthma, uncomplicated; E78.5 Hyperlipidemia, unspecified; I34.0 Nonrheumatic mitral (valve) insufficiency; M60.9 Myositis, unspecified; M79.7 Fibromyalgia; E55.9 Vitamin D deficiency, unspecified; Z79.899 Other long term (current) drug therapy; Z88.8 Allergy status to other drugs, medicaments and biological substances; Z90.49 Acquired absence of other specified parts of digestive tract; Z96.649 Presence of unspecified artificial hip joint; Z83.3 Family history of diabetes mellitus; Z82.49 Family history of ischemic heart disease and other diseases of the circulatory system
CPT/HCPCS: 85025; 88300

== ENCOUNTER → 2018-07-13 | Outpatient (CLI) | payer MEDICARE ==
[2018-07-13 14:00] LABS: Appearance,Urine Cloudy (Clear); Bacteria,Urine Rare /hpf; Bilirubin,Urine Negative (Negative); Blood,Urine Negative (Negative); Color,Urine Yellow; Glucose,Urine (UA) Negative (Negative); Ketones,Urine Trace (Negative); Leukocyte Esterase,Urine Large (Negative); Mucus,Urine Few /hpf; Nitrite,Urine Negative (Negative); PH, Urine 5.5 (5.0-8.0); Protein,Urine 1+ (Negative); Specific Gravity,Urine 1.028 (1.001-1.035); Squamous Epithelial Cell,Urine 18 /hpf (0-4); WBC,Urine 20 /hpf (0-5)
[2018-07-13 14:06] LABS: HCT 42.9 % (34.0-46.0); HGB 14.1 gm/dL (11.4-16.0); MCH 29.7 pg (25.0-35.0); MCHC 32.8 g/dL (31.0-37.0); MCV 90.5 fL (80.0-100.0); Mean Platelet Volume 6.3; Platelet Count 303 k/uL (150-450); RBC 4.74 m/uL (3.80-5.40); WBC 6.4 k/uL (3.8-10.6)
[2018-07-13 14:07] LABS: INR 0.9 (<1.2); Partial Thromboplastin Time 23.8 sec (22.0-30.0); Prothrombin Time 9.9 sec (9.0-12.0)
[2018-07-13 14:22] LABS: Albumin 4.4 g/dL (3.5-5.0); Calcium 10.2 mg/dL (8.4-10.2); Potassium 4.6 mmol/L (3.5-5.1); Total Bilirubin 0.4 mg/dL (0.2-1.3); Total Protein 7.1 g/dL (6.3-8.2)
== END | disposition home or self-care (01) ==
LOC: LABPAT 13:21
PROVIDERS: ATTEND Orthopaedic Surgery
DX: Z01.812 Encounter for preprocedural laboratory examination (principal); Z51.81 Encounter for therapeutic drug level monitoring; Z79.01 Long term (current) use of anticoagulants
CPT/HCPCS: 36415; 80053; 81001; 85027; 85610; 85730; 87070

== ENCOUNTER → 2019-05-19 | Outpatient (CLI) | payer MEDICARE ==
--- NOTE | 2019-05-19 14:57 | US ---
EXAMINATION TYPE: US carotid duplex BILAT DATE OF EXAM: 05/19/2019 COMPARISON: NONE CLINICAL HISTORY: I65.23 OCCLUSION AND STENOSIS OF LEIA CAROTID ARTERIES. Stenosis EXAM MEASUREMENTS: RIGHT: Peak Systolic Velocity (PSV) cm/sec ----- Right CCA: 66.5 ----- Right ICA: 178 ----- Right ECA: 101 ICA/CCA ratio: 2.68 RIGHT: End Diastole cm/sec ----- Right CCA: 19.9 ----- Right ICA: 70.2 ----- Right ECA: 19.1 LEFT: Peak Systolic Velocity (PSV) cm/sec ----- Left CCA: 82.7 ----- Left ICA: 136 ----- Left ECA: 81.4 ICA/CCA ratio: 1.64 LEFT: End Diastole cm/sec ----- Left CCA: 31.5 ----- Left ICA: 49.0 ----- Left ECA: 18.0 VERTEBRALS (direction of flow): Right Vertebral: Antegrade Left Vertebral: Antegrade Rhythm: Normal Mild plaque bilateral bifurcations. Increased velocities bilateral distal ICA's, tortuous vessels IMPRESSION: Stenosis of 50-69% within the bilateral internal carotid arteries. Criteria for Assigning % of Stenosis / Diameter reduction (Estimation based on the indirect measurements of the internal carotid artery velocities (ICA PSV). 1. Normal (no stenosis)=ICA PSV < 125 cm/s: ratio < 2.0: ICA EDV<40 cm/s. 2. Less than 50% stenosis=ICA PSV < 125 cm/s: ratio < 2.0: ICA EDV<40 cm/s. 3. 50 to 69% stenosis=ICA PSV of 125 to 230 cm/s: ration 2.0 ? 4.0: ICA EDV 40-100 cm/s. 4. Greater than 70% stenosis to near occlusion= ICA PSV > 230 cm/s: ratio > 4.0: ICA EDV > 100 cm/s. 5. Near occlusion= ICA PSV velocities may be low or undetectable: variable ratio and ICA EDV. 6. Total occlusion=unable to detect flow.
--- NOTE | 2019-05-20 08:00 | ECHOF ---
Referral Reason:I34.0 I65.23 MEASUREMENTS -------- HEIGHT: 167.6 cm WEIGHT: 99.3 kg BP: RVIDd: 3.4 cm (< 3.3) IVSd: 1.6 cm (0.6 - 1.1) LVIDd: 4.4 cm (3.9 - 5.3) LVPWd: 1.5 cm (0.6 - 1.1) IVSs: 1.5 cm LVIDs: 3.3 cm LVPWs: 2.0 cm LAESV Index (A-L): 37.00 ml/m Ao Diam: 2.9 cm (2.0 - 3.7) AV Cusp: 1.7 cm (1.5 - 2.6) MV EXCURSION: 20.829 mm (> 18.000) MV EF SLOPE: 121 mm/s (70 - 150) EPSS: 0.4 cm MV E Gonzalo: 0.63 m/s MV DecT: 166 ms MV A Gonzalo: 0.65 m/s MV E/A Ratio: 0.96 RAP: 5.00 mmHg RVSP: 28.55 mmHg FINDINGS -------- Sinus rhythm. This was a technically difficult study with suboptimal apical views. The left ventricular size is normal. There is moderate concentric left ventricular hypertrophy. O verall left ventricular systolic function is low-normal with, an EF between 50 - 55 %. The diastoli c filling pattern is normal for the age of the patient 8.12. The right ventricle is mildly enlarged. LA is moderately dilated 34-39 ml/m2 The right atrial size is normal. 5.0mg of Lumason was utilized for enhancement of images Interatrial and interventricular septum intact. The aortic valve is trileaflet and appears structurally normal. There is mild aortic valve sclerosi s. There is no evidence of aortic regurgitation. No mitral regurgitation. Mild tricuspid regurgitation present. There is no evidence of pulmonary hypertension. The right v entricular systolic pressure, as measured by Doppler, is 28.55mmHg. There is no pulmonic regurgitation present. The aortic root size is normal. IVC Not well visulized. There is no pericardial effusion. CONCLUSIONS -------- 1. Sinus rhythm. 2. This was a technically difficult study with suboptimal apical views. 3. The left ventricular size is normal. 4. There is moderate concentric left ventricular hypertrophy. 5. Overall left ventricular systolic function is low-normal with, an EF between 50 - 55 %. 6. The diastolic filling pattern is normal for the age of the patient 8.12 7. The right ventricle is mildly enlarged. 8. LA is moderately dilated 34-39 ml/m2 9. The right atrial size is normal. 10. 5.0mg of Lumason was utilized for enhancement of images 11. Interatrial and interventricular septum intact. 12. The aortic valve is trileaflet and appears structurally normal. 13. There is mild aortic valve sclerosis. 14. There is no evidence of aortic regurgitation. 15. No mitral regurgitation. 16. Mild tricuspid regurgitation present. 17. There is no evidence of pulmonary hypertension. 18. The right ventricular systolic pressure, as measured by Doppler, is 28.55mmHg. 19. There is no pulmonic regurgitation present. 20. The aortic root size is normal. 21. IVC Not well visulized. 22. There is no pericardial effusion. SUPERVISOR OF GUIDANCE AND TESTING: Ольга Douglas RDCS
--- NOTE | 2019-05-21 10:49 | MM ---
Reason for exam: screening (asymptomatic). Last mammogram was performed 1 year and 1 month ago. History: Patient is postmenopausal. Benign right mammotome panel of the right breast, November 19, 2010. 3 benign excisional biopsies of the left breast. 4 benign excisional biopsies of the right breast. Took estrogen for 10 years beginning at age 50. Physical Findings: A clinical breast exam by your physician is recommended on an annual basis and results should be correlated with mammographic findings. MG 3D Screening Mammo W/Cad Bilateral CC and MLO view(s) were taken. Prior study comparison: April 16, 2018, left breast MG 3d work up w/cad LT. April 01, 2018, bilateral MG 3d screening mammo w/cad. The breast tissue is heterogeneously dense. This may lower the sensitivity of mammography. Previous mammotome biopsy in the right breast. No significant changes when compared with prior studies. ASSESSMENT: Negative, BI-RAD 1 RECOMMENDATION: Routine screening mammogram of both breasts in 1 year.
== END | disposition home or self-care (01) ==
LOC: RADMAMWWP 13:36
PROVIDERS: ATTEND Internal Medicine
DX: Z12.31 Encounter for screening mammogram for malignant neoplasm of breast (principal); I65.23 Occlusion and stenosis of bilateral carotid arteries; I35.0 Nonrheumatic aortic (valve) stenosis; I07.1 Rheumatic tricuspid insufficiency
CPT/HCPCS: 77067; 77063; 93880; C8929; Q9950; 93306

== ENCOUNTER → 2019-06-28 | Outpatient (CLI) | payer MEDICARE ==
[2019-06-28 13:22] LABS: HCT 40.6 % (34.0-46.0); HGB 13.3 gm/dL (11.4-16.0); MCH 30.3 pg (25.0-35.0); MCHC 32.9 g/dL (31.0-37.0); MCV 91.9 fL (80.0-100.0); Mean Platelet Volume 7.6; Platelet Count 236 k/uL (150-450); RBC 4.41 m/uL (3.80-5.40); RDW 12.8 % (11.5-15.5); WBC 5.5 k/uL (3.8-10.6)
[2019-06-28 13:32] LABS: Albumin 4.2 g/dL (3.5-5.0); Calcium 9.8 mg/dL (8.4-10.2); Potassium 4.3 mmol/L (3.5-5.1); Total Bilirubin 0.4 mg/dL (0.2-1.3); Total Protein 6.6 g/dL (6.3-8.2)
[2019-06-28 13:33] LABS: INR 0.9 (<1.2); Prothrombin Time 9.8 sec (9.0-12.0)
[2019-06-28 13:58] LABS: Appearance,Urine Clear (Clear); Bilirubin,Urine Negative (Negative); Blood,Urine Negative (Negative); Color,Urine Yellow; Glucose,Urine (UA) Negative (Negative); Hyaline Casts,Urine 1 /lpf (0-2); Ketones,Urine Negative (Negative); Leukocyte Esterase,Urine Moderate (Negative); Mucus,Urine Rare /hpf; Nitrite,Urine Negative (Negative); PH, Urine 5.5 (5.0-8.0); Protein,Urine Negative (Negative); RBC,Urine 2 /hpf (0-5); Specific Gravity,Urine 1.023 (1.001-1.035); Squamous Epithelial Cell,Urine 2 /hpf (0-4); Urobilinogen,Urine <2.0 mg/dL (<2.0); WBC,Urine 5 /hpf (0-5)
== END | disposition home or self-care (01) ==
LOC: LABPAT 11:44
PROVIDERS: ATTEND Orthopaedic Surgery
DX: Z01.812 Encounter for preprocedural laboratory examination (principal); Z01.818 Encounter for other preprocedural examination
CPT/HCPCS: 80053; 81001; 85027; 85610; 85730; 87070

== ENCOUNTER 2019-07-06 07:35 | Observation (INO) | payer MEDICARE ==
[2019-07-01 09:11] VITALS: BMI 34.8
[~2019-07-06 07:35] MED LIST: ACETAMINOPHEN TAB 500 MG TAB PO ONE; CLINDAMYCIN 900 MG in DEXTROSE 5% IN WATER 50 ML IVPB ONE; DEXAMETHASONE SOD PHOSPHATE 10 MG/ML 1 ML VIAL IV ONE; GABAPENTIN 300 MG CAP PO ONE; LIDOCAINE 1% 20 ML VIAL (10MG/ML) FOR IV START INTRADERMA PRN; MELOXICAM 7.5 MG TAB PO ONE; MIDAZOLAM 2 MG/2 ML VIAL IV PRN; ONDANSETRON 4 MG/2 ML VIAL IVP ONE; ROPIVACAINE 246.25 MG, EPINEPHrine 0.5 MG, KETOROLAC 30 MG, cloNIDine HCL/PF 80 MCG, WA... MISCELLANE ONE; SCOPOLAMINE 1.5MG/72HR PATCH TRANSDERM ONE; TRANEXAMIC ACID 1,000 MG in SODIUM CHLORIDE 0.9% 100 ML IVPB ONE
[2019-07-06] MEDS ORDERED: LACTATED RINGERS 1,000 ML IV ONE (08:33)
[2019-07-06] MEDS ORDERED: NALOXONE 0.4 MG/ML 1 ML VIAL IV PRN (08:46)
[2019-07-06] MEDS ORDERED: ONDANSETRON 4 MG/2 ML VIAL IVP PRN (08:46)
[2019-07-06] MEDS ORDERED: DIAZEPAM 5 MG TAB PO PRN (08:46)
[2019-07-06] MEDS ORDERED: HYDROmorphone 0.5 MG/0.5 ML SYRINGE IVP PRN ×2 (08:46)
[2019-07-06] MEDS ORDERED: HYDROcodone/APAP 7.5-325MG 1 EACH TAB PO PRN (08:46)
[2019-07-06] MEDS ORDERED: MAGNESIUM HYDROXIDE 2,400 MG/10 ML CUP PO PRN (08:46)
[2019-07-06] MEDS ORDERED: PROPOFOL 10 MG/ML 20 ML VIAL IV ONE (09:04)
[2019-07-06] MEDS ORDERED: SODIUM CHLORIDE 0.9% IRRIG 1,000 ML BTL IRRIGATION ONE (09:04)
[2019-07-06] MEDS ORDERED: MIDAZOLAM 2 MG/2 ML VIAL ONE (09:04)
[2019-07-06] MEDS ORDERED: SODIUM CHLORIDE 0.9% 100 ML BAG ONE (09:04)
[2019-07-06] MEDS ORDERED: HEPARIN SODIUM,PORCINE 10,000 UNIT/ML 1 ML VIAL ONE (09:04)
[2019-07-06] MEDS ORDERED: fentaNYL (PF) 50 MCG/ML 2 ML AMP ONE (09:04)
[2019-07-06] MEDS ORDERED: PHENYLEPHRINE-0.9% NACL SYG 1 MG/10 ML SYRINGE ONE (09:04)
[2019-07-06] MEDS ORDERED: TRANEXAMIC ACID 1,000 MG/10 ML VIAL ONE (09:04)
[2019-07-06] MEDS ORDERED: ceFAZolin 3,000 MG in SODIUM CHLORIDE 0.9% IRRIGATIO 3,000 ML IRRIGATION ONE (09:46)
--- NOTE | 2019-07-06 10:35 | P.OP ---
Date of Procedure: 07/06/19 Preoperative Diagnosis: Severe osteoarthritis left hip Postoperative Diagnosis: Severe osteoarthritis left hip Procedure(s) Performed: Left total hip arthroplasty with a direct anterior approach Implants: Basilio and nephew Polarstem size 4 standard Basilio & Nephew R3, 3 hole acetabular shell, 52 mm Basilio & Nephew reflection 6.5 mm cancellus screw, 20 mm 2 Basilio & Nephew R3, XLPE 20 acetabular liner Basilio & Nephew Oxinium femoral head 36 m, +4 All components were press-fit. The articulation is Oxinium on polyethylene. Anesthesia: spinal Surgeon: Zack Nicholas Gas Well Pumper #1: Jessenia Leahy Estimated Blood Loss (ml): 200 (63 mL returned with Cell Saver) Pathology: other (Femoral head) Condition: stable Disposition: PACU Indications for Procedure: After failure of conservative treatment we discussed the surgical and nonsurgical treatment options at length. Patient wishes to proceed with a total hip arthroplasty with a direct anterior approach. Complications specific to this procedure were discussed at length, including but not limited to infection, leg length discrepancy, dislocation, and nerve injury. Patient is aware of all these complications and informed consent was obtained Operative Findings: The operative findings are consistent with severe osteoarthritis of the left hip Description of Procedure: Patient was seen and evaluated in the preoperative area, consent was reviewed, and the surgical site was marked with a skin marker. Patient was then brought to the operating room and given prophylactic antibiotics intravenously. 1 g of Tranexamic acid was also given. A spinal anesthetic was administered by the anesthesia department. The patient was then placed on the Wendel table with the bony prominences well-padded. The hip area was then prepped and draped in usual sterile fashion. A universal timeout was then performed, which confirmed the patient's name, surgical site, ALLERGIES, and procedure being performed. Next the incision site was located at 1 cm distal and 1 cm lateral to the anterior superior iliac spine. The skin and subcutaneous tissues were sharply incised. Incision was carefully dissected down to the fascia overlying the tensor fascia ricarda muscle. This fascia was then incised in line with the incision. Next, using blunt finger dissection, the tensor fascia ricarda muscle was dissected off its investing fascia. The muscle was then carefully retracted laterally with a cobra retractor over the lateral neck of the femur. Next, the circumflex vessels were identified and cauterized using the AquaMantis device. The anterior hip capsule was then exposed. The capsule was then opened and an inverted T fashion. Cobra retractors were then placed intracapsularly. The proximal femur was then visu alized. The femoral neck was then osteotomized appropriate level above the lesser trochanter. Small amount of traction was placed with the Wendel table. A small wedge of bone was then removed from the remaining femoral head. Next, using a corkscrew femoral head was easily removed from the acetabulum. On gross visual inspection, the femoral head had complete loss of articular cartilage in multip le periarticular osteophytes. Attention was then turned to the acetabulum. the acetabulum was exposed and any remaining labrum was excised. Sequential reaming of the acetabulum was performed using fluoroscopic guidance. When the appropriate size was reached, a trial was then placed. The position and fit of the trial was checked with fluoroscopy. The trial was then removed. Then, using fluoroscopic guidance, the final implant was impacted at 20 of anteversion and 40 of abduction, and fully seated in the acetabulum. 2 screws were then placed in the acetabulum. Again fluoroscopy was used to check position of the screws. Next, the liner was then impacted, with a 20 elevated liner located in the anterior superior quadrant. Component locking was confirmed. Attention was then directed to the femur. With the aid of the Wendel table, the femur was externally rotated to approximately 130, extended, and abducted under the opposite leg. A side hook was then placed under the proximal femur, and the side hook elevator was used to elevate the proximal femur. Retractors were then placed. A capsular release was performed, as well as a release of the conjoined tendon, which afforded excellent visualization of the proximal femur. Next, a box osteotome was used to lateralize the proximal femur. A section hand helper was then used to locate the femoral canal. Sequential broaching was then performed with appropriate size which afforded excellent fixation in the proximal femur. A trial was then placed with appropriate head and neck, and the hip was gently reduced with the aid of the Wendel table. Fluoroscopy was then used to check position of the components, as well as to ensure equal leg lengths. The hip was then gently dislocated and the trials were then removed. Final implants were then impacted and the hip was again reduced. Final fluoroscopic x-rays confirmed that the components were in anatomic position, as well as equal leg lengths. The hip was also taken through range of motion, and found to be stable. The hip was then copiously irrigated with antibiotic solution with pulsatile lavage. The hip was then irrigated with Irrisept solution. The soft tissues were then injected with a ropivacaine solution, which consisted of 246.25 mg of ropivacaine, 0.5 mg of epinephrine, 30 mg of Toradol, 80 g of clonidine, and 48.45 mL of sterile water, for a total of 100 mL of fluid injected. A second dose of 1 g of Tranexamic acid was also given. the fascia was then closed with 2-0 strata fix suture. The subcutaneous tissue was closed with 3-0 Vicryl. The subcuticular tissue was closed with 3-0 strata fix suture. The skin was then closed with Dermabond glue and a sterile silver dressing. The patient was then transferred to the recovery room in stable condition. The assistant county attorney IVY Lock was required due to the complexity of surgery, and the need for skilled regional vice president surgical sales for positioning, draping, exposure, retraction, and closure of the wound.
--- NOTE | 2019-07-06 11:17 | XR ---
EXAMINATION TYPE: XR Hip Limited LT, FL guidance operating room DATE OF EXAM: 07/06/2019 CLINICAL HISTORY: Left hip pain TECHNIQUE: Fluoroscopy. COMPARISON: None. FINDINGS: Fluoroscopic guidance was provided during procedure performed by Dr. Nicholas. A total of 52 seconds of fluoroscopic time was utilized during the procedure and 2 spot images was acquired dur ing left hip arthroplasty. IMPRESSION: As Above.
--- NOTE | 2019-07-06 11:18 | XR ---
EXAMINATION TYPE: XR Hip Limited LT DATE OF EXAM: 07/06/2019 CLINICAL HISTORY: Left hip pain and osteoarthritis. TECHNIQUE: Single AP portable view of left hip is obtained immediately postoperatively. COMPARISON: None. FINDINGS: Metallic hardware from left hip arthroplasty is seen and appears satisfactory in alignment and position. There is evidence of recent surgery with subcutaneous gas noted laterally. IMPRESSION: Metallic hardware from left hip arthroplasty is satisfactory in position.
[2019-07-06] MEDS: HYDROmorphone 0.5 MG/0.5 ML SYRINGE IVP PRN ×3 (13:10→21:15)
[2019-07-06] MEDS: MELOXICAM 7.5 MG TAB PO SCH (14:44)
[2019-07-06] MEDS: SODIUM CHLORIDE 0.9% 1,000 ML IV SCH ×2 (14:45→21:18)
[2019-07-06] MEDS ORDERED: ALBUTEROL NEBULIZED 2.5 MG/3 ML INHALATION PRN (15:37)
[2019-07-06] MEDS: CLINDAMYCIN 900 MG in DEXTROSE 5% IN WATER 50 ML IVPB SCH ×2 (16:44)
[2019-07-06] MEDS: HYDROcodone/APAP 7.5-325MG 1 EACH TAB PO PRN (18:12)
[2019-07-06] MEDS: SENNOSIDES-DOCUSATE SODIUM 1 EACH TAB PO SCH (21:16)
[2019-07-06] MEDS: ZOLPIDEM 5 MG TAB PO SCH (21:16)
[2019-07-06] MEDS: ASPIRIN 325 MG TAB PO SCH (21:17)
[2019-07-06] MEDS: DULoxetine HCL 30 MG CAPSULE.DR PO SCH (21:17)
[2019-07-06] MEDS: MONTELUKAST 10 MG TAB PO SCH (21:17)
[2019-07-07] MEDS: HYDROcodone/APAP 7.5-325MG 1 EACH TAB PO PRN ×4 (00:04→18:30)
[2019-07-07] MEDS: CLINDAMYCIN 900 MG in DEXTROSE 5% IN WATER 50 ML IVPB SCH ×2 (00:05)
[2019-07-07] MEDS: hydrOXYzine PAMOATE 25 MG CAP PO PRN ×4 (00:09→18:31)
[2019-07-07] MEDS: HYDROmorphone 0.5 MG/0.5 ML SYRINGE IVP PRN ×2 (01:58→21:50)
[2019-07-07] MEDS: PANTOPRAZOLE 40 MG TABLET PO SCH (07:08)
[2019-07-07] MEDS: SODIUM CHLORIDE 0.9% 1,000 ML IV SCH (07:08)
--- NOTE | 2019-07-07 08:17 | P.PN ---
Subjective Progress Note Date: 07/07/19 This is a 73-year-old female who is status post left total hip arthroplasty. This is postoperative day #1 and patient is seen and evaluated at bedside with Dr. Zack Nicholas. Patient states that she had a near fall yesterday when trying to get out of bed. Patient states that the left leg feels like it won't support her when she tries to bear weight on it. Patient denies any fever/chills, numbness, weakness, tingling, abdominal pain, shortness of breath or chest pain. Objective - Vital Signs Vital signs: Vital Signs Temp 98.6 F 07/07/19 01:16 Pulse 60 07/07/19 01:16 Resp 18 07/07/19 03:44 BP 101/49 07/07/19 01:16 Pulse Ox 95 07/07/19 01:16 Intake & Output 07/06/19 07/07/19 07/07/19 18:59 06:59 18:59 Intake Total 757 980 Output Total 200 Balance 557 980 Weight 100.1 kg Intake: IV 757 Intake, IV Titration 980 Amount Sodium Chloride 0.9% 1, 980 000 ml @ 70 mls/hr IV . [id number] [facility] Rx#:[id number] Output: Estimated Blood Loss 200 Other: Voiding Method Bedside Commode Bedside Commode Bedside Commode - Exam Vital signs are stable. Patient is in no acute distress and is alert and oriented 3. Calf is soft and nontender to palpation. Dressing is clean, dry, and intact. Patient is able to actively flex and extend the left hip. There is no deformity of the left lower extremity. Patient has full foot and ankle motion without pain or difficulty. Neurovascular status and circulatory status are intact. Assessment and Plan (1) Osteoarthritis of left hip Current Visit: Yes Status: Acute Code(s): M16.12 - UNILATERAL PRIMARY OSTEOARTHRITIS, LEFT HIP SNOMED Code(s): 510832346666650 (2) Status post total hip replacement, left Current Visit: Yes Status: Acute Code(s): Z96.642 - PRESENCE OF LEFT ARTIFICIAL HIP JOINT SNOMED Code(s): 892183804818 Plan: Continue routine postop care and pain control. X-rays of the left hip are pending. Continue anticoagulation with aspirin. Weightbearing as tolerated with a walker. Leave dressing in place for 10 days. Appreciate input from medicine. Anticipate discharge home with homecare today or tomorrow pending x-ray results and physical therapy.
[2019-07-07 08:32] LABS: Basophils # (A) 0.1 k/uL (0-0.2); Basophils % (A) 1 %; Eosinophils % (A) 0 %; HCT 34.5 % (34.0-46.0); HGB 11.1 gm/dL (11.4-16.0); Lymphocytes # (A) 1.4 k/uL (1.0-4.8); Lymphocytes % (A) 18 %; MCHC 32.1 g/dL (31.0-37.0); MCV 93.4 fL (80.0-100.0); Mean Platelet Volume 8.1; Monocytes # (A) 0.4 k/uL (0-1.0); Monocytes % (A) 6 %; Neutrophils # (A) 5.6 k/uL (1.3-7.7); Neutrophils % (A) 74 %; Platelet Count 176 k/uL (150-450); RBC 3.69 m/uL (3.80-5.40); WBC 7.5 k/uL (3.8-10.6)
--- NOTE | 2019-07-07 08:58 | XR ---
EXAMINATION TYPE: XR Hip Limited LT DATE OF EXAM: 07/07/2019 COMPARISON: 07/06/2019 HISTORY: Pain, fall TECHNIQUE: Left hip is examined in 2 projections. FINDINGS: There is a left femoral prosthesis with acetabular component. No acute fractures or disloca tions are evident. Postsurgical changes remain within the soft tissues. IMPRESSION: 1. No acute fractures post trauma
[2019-07-07] MEDS: ASPIRIN 325 MG TAB PO SCH ×2 (09:09→20:21)
[2019-07-07] MEDS: MELOXICAM 7.5 MG TAB PO SCH (09:09)
[2019-07-07] MEDS: LORATADINE 10 MG TAB PO SCH (09:09)
[2019-07-07] MEDS: FENOFIBRATE 160 MG TAB PO SCH (09:09)
[2019-07-07] MEDS: LOSARTAN 50 MG TAB PO SCH (09:09)
[2019-07-07] MEDS: MULTIVITAMINS, THERA 1 EACH TAB PO SCH (09:09)
[2019-07-07] MEDS: DULoxetine HCL 30 MG CAPSULE.DR PO SCH ×2 (09:09→20:21)
--- NOTE | 2019-07-07 10:02 | P.CONS ---
History of Present Illness - Reason for Consult Consult date: 07/07/19 Medical management - History of Present Illness This is a 73-year-old female patient of Dr. Berry with past medical history of hypertension hypertensive cardiovascular disease, hyperlipidemia, mitral regurgitation, fibromyalgia, seasonal ALLERGIES, obesity, chronic low back pain, carotid artery disease, osteoarthritis overactive bladder, vitamin D deficiency. The patient was brought into the hospital and care of Dr. Nicholas status post left total hip arthroplasty. Patient states that she is having weakness to her left hip and had episode yesterday getting out of bed in which left leg was weak and gave out. She started to fall but caught by staff. No injury, no lightheadedness or dizziness. X-ray of the left hip show the total hip arthroplasty in good position and alignment. No fracture or dislocation. Patient states that her pain is okay. She denies any nausea vomiting. She is passing gas. No chest pain or shortness of breath. Physical therapy has evaluated and recommend staying for another day. Patient is on aspirin 325 mg twice daily for DVT prophylaxis. Review of Systems Constitutional: Denies chills, Denies fatigue, Denies fever, Denies lethargy, Denies malaise, Denies poor appetite, Denies weakness Eyes: denies blurred vision, denies pain Ears, nose, mouth and throat: Denies headache, Denies sore throat, Denies vertigo Cardiovascular: Denies chest pain, Denies dyspnea on exertion, Denies leg edema, Denies shortness of breath, Denies syncope Respiratory: Denies cough, Denies cough with sputum, Denies dyspnea, Denies excessive sputum, Denies hemoptysis, Denies home oxygen, Denies respiratory infections, Denies wheezing Gastrointestinal: Denies abdominal pain, Denies diarrhea, Denies loss of appetite, Denies nausea, Denies vomiting Genitourinary: Denies dysuria, Denies hematuria, Denies urgency, Denies urinary frequency Musculoskeletal: Reports gait dysfunction, Reports muscle weakness (left leg), Denies myalgias Integumentary: Denies pruritus, Denies rash, Denies wounds Neurological: Reports gait dysfunction, Denies change in mentation, Denies change in speech, Denies confusion, Denies numbness, Denies seizures, Denies weakness Psychiatric: Denies anxiety, Denies depression Endocrine: Denies fatigue, Denies weight change Past Medical History Past Medical History: Asthma, Coronary Artery Disease (CAD), Fibromyalgia, GERD/Reflux, Hyperlipidemia, Hypertension, Osteoarthritis (OA) Additional Past Medical History / Comment(s): Mitral regurgitation, allergic rhinitis, chronic low back pain, overactive bladder. History of Any Multi-Drug Resistant Organisms: None Reported Past Surgical History: Breast Surgery, Cholecystectomy, Joint Replacement, Orthopedic Surgery Additional Past Surgical History / Comment(s): Bilateral knee replacements, right wrist fusion, bilateral cataracts, breast biopsy, total right hip replacement, bilateral rotator cuff tear repairs. Left total hip arthroplasty Past Anesthesia/Blood Transfusion Reactions: Postoperative Nausea & Vomiting (PONV) Additional Past Anesthesia/Blood Transfusion Reaction / Comm: No hx blood trans fusion. Past Psychological History: No Psychological Hx Reported Smoking Status: Never smoker Past Alcohol Use History: Occasional Additional Past Alcohol Use History / Comment(s): Patient is a lifelong nonsmoker, no marijuana use, illicit drug use, occasional alcohol use. Patient lives at home with her . Past Drug Use History: None Reported - Past Family History Mother Family Medical History: Cancer, Coronary Artery Disease (CAD) Additional Family Medical History / Comment(s): Mother at age 86 from heart disease and colon cancer. Father Family Medical History: Cancer Additional Family Medical History / Comment(s): Father at age 86 from heart disease and colon cancer. Brother(s) Family Medical History: Cancer Additional Family Medical History / Comment(s): Patient had 3 brothers and one had colon cancer, another with coronary artery disease and [place], a third with diabetes. Sister(s) Family Medical History: No Reported History Additional Family Medical History / Comment(s): Patient has 1 sister with no major medical problems. Patient has 3 children with no major medical problems. Medications and Allergies Home Medications Medication Instructions Recorded Confirmed Type Albuterol Sulfate [Proair Hfa] 2 puff INHALATION RT-Q6H PRN 04/12/16 07/06/19 History Losartan Potassium [Cozaar] 50 mg PO QAM 04/12/16 07/06/19 History Omeprazole [PriLOSEC] 20 mg PO QAM 04/12/16 07/01/19 History DULoxetine HCL [Cymbalta] 30 mg PO BID 04/15/17 07/01/19 History Fenofibrate Nanocrystallized 145 mg PO DAILY 07/15/18 07/06/19 History [Tricor] Multivit-Min/FA/Lycopen/Lutein 1 each PO DAILY 07/15/18 07/01/19 History [Centrum Silver Tablet] Ibuprofen [Motrin Ib] 2 tab PO Q6H PRN 07/20/18 07/01/19 History Mirabegron [Myrbetriq] 50 mg PO QAM 07/20/18 07/06/19 History Zolpidem Tartrate [Ambien Cr] 12.5 mg PO HS 07/20/18 07/06/19 History Calcium 400 mg PO QAM 07/01/19 07/01/19 History Cetirizine HCl [Zyrtec] 10 mg PO QAM 07/01/19 07/06/19 History Estrogens, Conjugated Cream 1 gm VAGINAL DIRECTED 07/01/19 07/06/19 History [Premarin Cream] HYDROcodone/APAP 7.5-325MG [[place] 1 tab PO Q12H PRN 07/01/19 07/06/19 History 7.5-325] Montelukast Sodium [Singulair] 10 mg PO HS 07/01/19 07/06/19 History Aspirin 325 mg PO BID #60 tab 07/07/19 Rx HYDROcodone/APAP 7.5-325MG [[place] 1 - 2 tab PO Q6H PRN #56 tab 07/07/19 Rx 7.5-325] Sennosides [Senokot] 2 tab PO DAILY PRN #60 tablet 07/07/19 Rx Allergies Allergy/AdvReac Type Severity Reaction Status Date / Time [place]ef[place] [facility] [place] Allergy Rash/Hives Verified 07/01/19 08:46 Physical Exam Vitals: Vital Signs Temp Pulse Pulse Resp BP Pulse Ox 07/07/19 07:18 98.5 F 67 16 113/64 96 07/07/19 03:44 18 07/07/19 01:16 98.6 F 60 18 101/49 95 07/07/19 00:20 18 07/06/19 20:15 18 07/06/19 19:20 98.1 F 78 18 102/62 93 L 07/06/19 14:00 81 18 124/60 97 07/06/19 13:30 74 16 122/62 97 07/06/19 13:00 72 16 119/61 97 07/06/19 12:30 78 16 125/59 99 07/06/19 12:02 70 16 114/56 100 07/06/19 11:46 56 L 16 115/55 100 07/06/19 11:31 57 L 16 112/56 100 07/06/19 11:16 58 L 14 109/53 100 07/06/19 10:56 97.4 F L 58 L 16 126/58 97 Intake and Output 07/06/19 07/07/19 07/07/19 22:59 06:59 14:59 Intake Total 560 420 Balance 560 420 Intake: Intake, IV Titration 560 420 Amount Sodium Chloride 0.9% 1, 560 420 000 ml @ 70 mls/hr IV . [id number] [facility] Rx#:[id number] Other: Voiding Method Bedside Commode Bedside Commode Bedside Commode Gen: This is a 73-year-old female. She is resting and appears to be comfortable and in no acute distress. HEENT: Head is atraumatic, normocephalic. Pupils equal, round. Sclerae is anicteric. NECK: Supple. No JVD. No lymphadenopathy. No thyromegaly. LUNGS: Clear to auscultation. No wheezes or rhonchi. No intercostal retractions. HEART: Regular rate and rhythm. No murmur. ABDOMEN: Soft. Bowel sounds are present. No masses. No tenderness. EXTREMITIES: No pedal edema. No calf tenderness. Dressing in place of the left hip. NEUROLOGICAL: Patient is awake, alert and oriented x3. Cranial nerves 2 through 12 are grossly intact. Results CBC & Chem 7: 07/07/19 06:58 Labs: Abnormal Lab Results - Last 24 Hours (Table) 07/07/19 Range/Units 06:58 RBC 3.69 L (3.80-5.40) m/uL Hgb 11.1 L (11.4-16.0) gm/dL Assessment and Plan Plan: 1. Status post left total hip arthroplasty anterior approach. Continue incentive spirometry to reduce the incidence of atelectasis and hospital- acquired pneumonia, continue deep venous thromboses prophylaxis, continue current pain management, physical therapy evaluation. 2. Hypertension and hypertensive cardiovascular disease. Continue losartan 50 mg orally once every day. 3. Hyperlipidemia. Low-cholesterol diet and fenofibrate 145 mg orally once every day. 4. Asthma, mild intermittent. Continue albuterol as needed. 5. Fibromyalgia. Continue Cymbalta 30 mg orally twice every day. 6. Overactive bladder. Resume mirabegron 50mg daily tomorrow. 7. Osteoarthritis, generalized. Continue current pain management. 8. Chronic low back pain. Status post epidural injections. 9. Obesity with BMI of 35. Diet and exercise and weight loss. 10. GERD. Continue Protonix. 11. Insomnia. Continue Ambien 10 minute gram orally bedtime. 12. DVT prophylaxis. Continue patient on aspirin 325 mg orally twice every day. 13. GI prophylaxis. Continue Protonix. Discharge plan: Home with [facility] Impression and plan of care have been directed as dictated by the signing physician. Alicia Schwarz nurse practitioner acting as scribe for signing physician.
[2019-07-07] MEDS: SENNOSIDES-DOCUSATE SODIUM 1 EACH TAB PO SCH (20:21)
[2019-07-07] MEDS: MONTELUKAST 10 MG TAB PO SCH (20:21)
[2019-07-07] MEDS: ZOLPIDEM 5 MG TAB PO SCH (20:21)
[2019-07-08] MEDS: hydrOXYzine PAMOATE 25 MG CAP PO PRN (01:39)
[2019-07-08] MEDS: HYDROcodone/APAP 7.5-325MG 1 EACH TAB PO PRN (01:39)
[2019-07-08] MEDS: SODIUM CHLORIDE 0.9% 1,000 ML IV SCH ×2 (02:25→07:48)
[2019-07-08] MEDS: ASPIRIN 325 MG TAB PO SCH (07:46)
[2019-07-08] MEDS: LORATADINE 10 MG TAB PO SCH (07:46)
[2019-07-08] MEDS: LOSARTAN 50 MG TAB PO SCH (07:46)
[2019-07-08] MEDS: MELOXICAM 7.5 MG TAB PO SCH (07:46)
[2019-07-08] MEDS: DULoxetine HCL 30 MG CAPSULE.DR PO SCH (07:47)
[2019-07-08] MEDS: FENOFIBRATE 160 MG TAB PO SCH (07:47)
[2019-07-08] MEDS: MULTIVITAMINS, THERA 1 EACH TAB PO SCH (07:47)
[2019-07-08] MEDS: PANTOPRAZOLE 40 MG TABLET PO SCH (07:47)
--- NOTE | 2019-07-08 08:36 | P.DS ---
Providers Date of admission: 07/06/19 07:35 Expected date of discharge: 07/08/19 Attending physician: Zack Nicholas Consults: 07/06/19 08:46 Consult Physician Routine Consulting Provider: Jacqueline Berry Consult Reason/Comments: medical management Do you want consulting provider notified?: Yes Primary care physician: Jacqueline Berry - Discharge Diagnosis(es) (1) Osteoarthritis of left hip Current Visit: Yes Status: Acute (2) Status post total hip replacement, left Current Visit: Yes Status: Acute Hospital Course: This is a 73-year-old female with known history of degenerative arthritis of the left hip. The patient presents for evaluation. After discussion and consideration patient elects to proceed with total hip arthroplasty. The patient is seen preoperatively by Dr. Nicholas and medically cleared for surgery by their primary care physician. Patient is admitted to [facility] on 07/06/2019 for total hip arthroplasty. The procedures performed without complication or sequelae. The patient is doing well postoperatively. Labs and vital signs are stable on day of discharge. On day of discharge patient's hip incision is healing well. There is minimal erythema. There is no drainage noted at this time. There is minimal soft tissue swelling to the hip and thigh. Patient has full foot and ankle motion without difficulty or pain. Calf is soft and nontender to palpation. Neurov ascular status to the left lower extremity is intact. Patient is discharged home in good condition. Opioid start talking form is reviewed and signed at patient bedside. Please see med rec for accurate list of home medications. Plan - Discharge Summary Discharge Rx Participant: No New Discharge Prescriptions: New Aspirin 325 mg PO BID #60 tab HYDROcodone/APAP 7.5-325MG [[place] 7.5-325] 1 - 2 tab PO Q6H PRN #56 tab PRN Reason: Pain Sennosides [Senokot] 2 tab PO DAILY PRN #60 tablet PRN Reason: Constipation No Action Omeprazole [PriLOSEC] 20 mg PO QAM Losartan Potassium [Cozaar] 50 mg PO QAM Albuterol Sulfate [Proair Hfa] 2 puff INHALATION RT-Q6H PRN PRN Reason: Shortness Of Breath DULoxetine HCL [Cymbalta] 30 mg PO BID Fenofibrate Nanocrystallized [Tricor] 145 mg PO DAILY Multivit-Min/FA/Lycopen/Lutein [Centrum Silver Tablet] 1 each PO DAILY Zolpidem Tartrate [Ambien Cr] 12.5 mg PO HS Ibuprofen [Motrin Ib] 2 tab PO Q6H PRN PRN Reason: Pain Mirabegron [Myrbetriq] 50 mg PO QAM HYDROcodone/APAP 7.5-325MG [[place] 7.5-325] 1 tab PO Q12H PRN PRN Reason: Pain Estrogens, Conjugated Cream [Premarin Cream] 1 gm VAGINAL DIRECTED Montelukast Sodium [Singulair] 10 mg PO HS Cetirizine HCl [Zyrtec] 10 mg PO QAM Calcium 400 mg PO QAM Discharge Medication List Albuterol Sulfate [Proair Hfa] 2 puff INHALATION RT-Q6H PRN 04/12/16 [History] Losartan Potassium [Cozaar] 50 mg PO QAM 04/12/16 [History] Omeprazole [PriLOSEC] 20 mg PO QAM 04/12/16 [History] DULoxetine HCL [Cymbalta] 30 mg PO BID 04/15/17 [History] Fenofibrate Nanocrystallized [Tricor] 145 mg PO DAILY 07/15/18 [History] Multivit-Min/FA/Lycopen/Lutein [Centrum Silver Tablet] 1 each PO DAILY 07/15/18 [History] Ibuprofen [Motrin Ib] 2 tab PO Q6H PRN 07/20/18 [History] Mirabegron [Myrbetriq] 50 mg PO QAM 07/20/18 [History] Zolpidem Tartrate [Ambien Cr] 12.5 mg PO HS 07/20/18 [History] Calcium 400 mg PO QAM 07/01/19 [History] Cetirizine HCl [Zyrtec] 10 mg PO QAM 07/01/19 [History] Estrogens, Conjugated Cream [Premarin Cream] 1 gm VAGINAL DIRECTED 07/01/19 [History] HYDROcodone/APAP 7.5-325MG [[place] 7.5-325] 1 tab PO Q12H PRN 07/01/19 [History] Montelukast Sodium [Singulair] 10 mg PO HS 07/01/19 [History] Aspirin 325 mg PO BID #60 tab 07/07/19 [Rx] HYDROcodone/APAP 7.5-325MG [[place] 7.5-325] 1 - 2 tab PO Q6H PRN #56 tab 07/07/19 [Rx] Sennosides [Senokot] 2 tab PO DAILY PRN #60 tablet 07/07/19 [Rx] Follow up Appointment(s)/Referral(s): [facility], [NON-STAFF] - Zack Nicholas DO [Doctor of Osteopathic Medicine] - 2 Weeks Patient Instructions/Handouts: Anterior Hip Replacement (DC) Activity/Diet/Wound Care/Special Instructions: Weightbearing as tolerated with walker. Leave dressing intact. Dressing may be removed by home care nurse or by patient in 10 days. May shower with dressing on. Recommend use of compression stockings daily for at least 2 weeks during the day to help prevent swelling and blood clots. May remove at night before sleeping. Please follow-up with [facility] in 2 weeks and call with any questions or concerns, . Discharge Disposition: HOME WITH HOME HEALTH SERVICES
[2019-07-08 08:45] VITALS: BP 130/69; PULSE 92; RESP 16; TEMP 97.8
[2019-07-08] MEDS ORDERED: PATIENT'S OWN (Mirabegron [Myrbetriq] 50 MG) PO SCH (09:00)
--- NOTE | 2019-07-09 09:15 | P.PN ---
Subjective Progress Note Date: 07/08/19 This is a 73-year-old female patient of Dr. Berry with past medical history of hypertension hypertensive cardiovascular disease, hyperlipidemia, mitral regurgitation, fibromyalgia, seasonal ALLERGIES, obesity, chronic low back pain, carotid artery disease, osteoarthritis overactive bladder, vitamin D deficiency. The patient was brought into the hospital and care of Dr. Nicholas status post left total hip arthroplasty. Patient states that she is having weakness to her left hip and had episode yesterday getting out of bed in which left leg was weak and gave out. She started to fall but caught by staff. No injury, no lightheadedness or dizziness. X-ray of the left hip show the total hip arthroplasty in good position and alignment. No fracture or dislocation. Patient states that her pain is okay. She denies any nausea vomiting. She is passing gas. No chest pain or shortness of breath. Physical therapy has evaluated and recommend staying for another day. Patient is on aspirin 325 mg twice daily for DVT prophylaxis. 07/08: Patient has been afebrile, heart rate 89, blood pressure 98/49, pulse ox 92% on room air. Patient states that the weakness to her leg is improved today. She has been doing well with physical therapy. Patient is scheduled for discharge home. Patient has been instructed to hold losartan until blood pressure is greater than 120. Patient is cleared for discharge from medicine. Review of Systems Constitutional: Denies chills, Denies fatigue, Denies fever, Denies lethargy, Denies malaise, Denies poor appetite, Denies weakness Ears, nose, mouth and throat: Denies headache, Denies sore throat, Denies vertigo Cardiovascular: Denies chest pain, Denies dyspnea on exertion, Denies leg edema, Denies shortness of breath, Denies syncope Respiratory: Denies cough, Denies cough with sputum, Denies dyspnea, Denies excessive sputum, Denies hemoptysis, Denies home oxygen, Denies respiratory infections, Denies wheezing Gastrointestinal: Denies abdominal pain, Denies diarrhea, Denies loss of appetite, Denies nausea, Denies vomiting Genitourinary: Denies dysuria, Denies hematuria, Denies urgency, Denies urinary frequency Musculoskeletal: Reports gait dysfunction, Reports muscle weakness (left leg), Denies myalgias Integumentary: Denies pruritus, Denies rash, Denies wounds Neurological: Reports gait dysfunction, Denies change in mentation, Denies change in speech, Denies confusion, Denies numbness, Denies seizures, Denies weakness Psychiatric: Denies anxiety, Denies depression Endocrine: Denies fatigue, Denies weight change Objective - Vital Signs Vital signs: Vital Signs Temp 99.5 F 07/08/19 01:36 Pulse 89 07/08/19 01:36 Resp 17 07/08/19 01:36 BP 98/49 07/08/19 01:36 Pulse Ox 92 L 07/08/19 01:36 Intake & Output 07/07/19 07/08/19 07/08/19 18:59 06:59 18:59 Intake Total 660 Balance 660 Intake: Intake, IV Titration 210 Amount Sodium Chloride 0.9% 1, 210 000 ml @ 70 mls/hr IV . [id number] [facility] Rx#:[id number] Oral 450 Other: Voiding Method Toilet Toilet Bedside Commode Bedside Commode # Voids 2 2 1 - Exam Gen: This is a 73-year-old female. She is sitting in recliner and appears to be comfortable and in no acute distress. HEENT: Head is atraumatic, normocephalic. Pupils equal, round. Sclerae is anicteric. NECK: Supple. No JVD. No lymphadenopathy. No thyromegaly. LUNGS: Clear to auscultation. No wheezes or rhonchi. No intercostal retrac tions. HEART: Regular rate and rhythm. No murmur. ABDOMEN: Soft. Bowel sounds are present. No masses. No tenderness. EXTREMITIES: No pedal edema. No calf tenderness. Dressing in place of the left hip. NEUROLOGICAL: Patient is awake, alert and oriented x3. Cranial nerves 2 through 12 are grossly intact. - Labs CBC & Chem 7: 07/07/19 06:58 Labs: Abnormal Lab Results - Last 24 Hours (Table) 07/07/19 Range/Units 06:58 RBC 3.69 L (3.80-5.40) m/uL Hgb 11.1 L (11.4-16.0) gm/dL Assessment and Plan Plan: 1. Status post left total hip arthroplasty anterior approach. Continue incentive spirometry to reduce the incidence of atelectasis and hospital- acquired pneumonia, continue deep venous thromboses prophylaxis, continue current pain management, physical therapy evaluation. 2. Hypertension and hypertensive cardiovascular disease. Continue losartan 50 mg orally once every day with parameters. 3. Hyperlipidemia. Low-cholesterol diet and fenofibrate 145 mg orally once every day. 4. Asthma, mild intermittent. Continue albuterol as needed. 5. Fibromyalgia. Continue Cymbalta 30 mg orally twice every day. 6. Overactive bladder. Resume mirabegron 50mg daily tomorrow. 7. Osteoarthritis, generalized. Continue current pain management. 8. Chronic low back pain. Status post epidural injections. 9. Obesity with BMI of 35. Diet and exercise and weight loss. 10. GERD. Continue Protonix. 11. Insomnia. Continue Ambien 10 minute gram orally bedtime. 12. DVT prophylaxis. Continue patient on aspirin 325 mg orally twice every day. 13. GI prophylaxis. Continue Protonix. 14. Postop hypotension not unexpected after surgery. Patient is status post IV fluid bolus, hold losartan. Patient instructed to hold losartan at home. Discharge plan: Home with [facility] Impression and plan of care have been directed as dictated by the signing physician. Alicia Schwarz nurse practitioner acting as scribe for signing physician.
== END 2019-07-08 12:35 | disposition home health service (06) ==
LOC: INTOOBSV 07:35 → 2ORMAIN 07:35 → 4SSUR 10:56
PROVIDERS: ADMIT Orthopaedic Surgery; ATTEND Orthopaedic Surgery
DX: M16.12 Unilateral primary osteoarthritis, left hip (principal); I95.81 Postprocedural hypotension; I11.9 Hypertensive heart disease without heart failure; M79.7 Fibromyalgia; E78.49 Other hyperlipidemia; M25.462 Effusion, left knee; M25.662 Stiffness of left knee, not elsewhere classified; E55.9 Vitamin D deficiency, unspecified; R35.0 Frequency of micturition; I77.9 Disorder of arteries and arterioles, unspecified; I34.0 Nonrheumatic mitral (valve) insufficiency; G89.29 Other chronic pain; M54.5 Low back pain; J45.20 Mild intermittent asthma, uncomplicated; I77.89 Other specified disorders of arteries and arterioles; N32.81 Overactive bladder; I25.10 Atherosclerotic heart disease of native coronary artery without angina pectoris; K21.9 Gastro-esophageal reflux disease without esophagitis; G47.00 Insomnia, unspecified; E66.9 Obesity, unspecified; Z68.35 Body mass index [BMI] 35.0-35.9, adult; Z88.1 Allergy status to other antibiotic agents; Z79.1 Long term (current) use of non-steroidal anti-inflammatories (NSAID); Z79.899 Other long term (current) drug therapy; Z79.890 Hormone replacement therapy; Z79.891 Long term (current) use of opiate analgesic; Z90.49 Acquired absence of other specified parts of digestive tract; Z90.89 Acquired absence of other organs; Z98.890 Other specified postprocedural states; Z96.653 Presence of artificial knee joint, bilateral; Z96.641 Presence of right artificial hip joint; Z98.1 Arthrodesis status; Z98.42 Cataract extraction status, left eye; Z98.41 Cataract extraction status, right eye; Z91.89 Other specified personal risk factors, not elsewhere classified; Z83.3 Family history of diabetes mellitus; Z82.49 Family history of ischemic heart disease and other diseases of the circulatory system; Z80.0 Family history of malignant neoplasm of digestive organs
CPT/HCPCS: 27130; 97116 ×2; 97161; 97535; 97166; 86891; 85025; 88300; 73501 ×2; G0379; G0378 ×6; C1776; J2250; J0171; J1644; J1100; J2405; J0690; J3010; J1885; J2795; J2370; J2704; J0735; J1170 ×2; 86850; 86900; 86901

== ENCOUNTER → 2020-06-26 | Outpatient (CLI) | payer MEDICARE ==
--- NOTE | 2020-06-26 15:28 | BD ---
EXAMINATION TYPE: Axial Bone Density DATE OF EXAM: 06/26/2020 COMPARISON: DEXA bone scan 2018. CLINICAL HISTORY: Postmenopausal female. Osteoporosis. Height: 5 FT 5 IN Weight: 218 FRAX RISK QUESTIONS: Alcohol (3 or more units per day): NO Family History (Parent hip fracture): NO Glucocorticoids (More than 3mos): NO (Ex: prednisone, prednisolone, methylprednisolone, dexamethasone, and hydrocortisone). History of Fracture in Adulthood: NO Secondary Osteoporosis: 1. Type 1 Diabetes: NO 2. Hyperthyroidism: NO 3. Menopause before 45: NO 4. Malnutrition: NO 5. Chronic liver disease: NO Rheumatoid Arthritis: NO Current Tobacco Use: NO RISK FACTORS HISTORY OF: Surgery to Spine/Hip(right/left)/Wrist (right/left): LEIA HIP REPLACEMENT 2015 RT WRIST FUSION 1993 Family History of Osteoporosis: NO Active: YES Diet low in dairy products/other sources of calcium: NO Postmenopausal woman: AGE 51 Take estrogen and/or progesterone medications: TOOK HRT FROM [facility] [age] Lost more than 2 inches in height since high school: NO MEDICATIONS: Additional Medications: CYMBALTA, TRICOR, LOSARTAN, AMBIEN, CALCIUM, MYRBETRIQ Additional History: EXAM MEASUREMENTS: Bone mineral densitometry was performed using the Pro[employer]ino System. Bone mineral density as measured about the Lumbar spine is: ----- L1-L4(G/cm2): 1.439 T Score Values are as follows: ----- L2: 2.3 ----- L3: 3.5 ----- L4: 1.6 ----- L1-L4: 2.2 Bone mineral density has: INCREASED 3.9 % since study of: 2018 Bone mineral density about the L Wrist (g/cm2): 0.484 T Score values are as follows: -----Dist. R+U: -2.7 -----Prox. R+U: -2.0 -----Radius total: -3.2 FIRST TIME WRIST HAS BEEN MEASURED IMPRESSION: Osteopenia (T Score between -2.5 and -1). There is slightly increased risk of fracture and the patient may be considered for treatment. Re-Screen 2-5 years. NOTE: T-SCORE=SD OF THE YOUNG ADULT MEAN.
--- NOTE | 2020-06-27 14:23 | MM ---
Reason for exam: screening (asymptomatic). Last mammogram was performed 1 year and 1 month ago. History: Patient is postmenopausal. Benign right mammotome panel of the right breast, November 19, 2010. 3 benign excisional biopsies of the left breast. 4 benign excisional biopsies of the right breast. Took estrogen for 10 years beginning at age 50. Physical Findings: A clinical breast exam by your physician is recommended on an annual basis and results should be correlated with mammographic findings. MG 3D Screening Mammo W/Cad Bilateral CC and MLO view(s) were taken. Prior study comparison: May 19, 2019, bilateral MG 3d screening mammo w/cad. April 16, 2018, left breast MG 3d work up w/cad LT. The breast tissue is heterogeneously dense. This may lower the sensitivity of mammography. No significant changes when compared with prior studies. ASSESSMENT: Benign, BI-RAD 2 RECOMMENDATION: Routine screening mammogram of both breasts in 1 year.
== END | disposition home or self-care (01) ==
LOC: RADMAMWWP 13:45
PROVIDERS: ATTEND Internal Medicine
DX: Z12.31 Encounter for screening mammogram for malignant neoplasm of breast (principal); M85.80 Other specified disorders of bone density and structure, unspecified site; M81.0 Age-related osteoporosis without current pathological fracture
CPT/HCPCS: 77063; 77067; 77080

== ENCOUNTER → 2021-07-24 | Outpatient (CLI) | payer MEDICARE ==
--- NOTE | 2021-07-25 10:07 | MM ---
Reason for exam: screening (asymptomatic). Last mammogram was performed 1 year and 1 month ago. History: Patient is postmenopausal. Benign right mammotome panel of the right breast, November 19, 2010. 3 benign excisional biopsies of the left breast. 4 benign excisional biopsies of the right breast. Took estrogen for 10 years beginning at age 50. Physical Findings: A clinical breast exam by your physician is recommended on an annual basis and results should be correlated with mammographic findings. MG 3D Screening Mammo W/Cad Bilateral CC and MLO view(s) were taken. Prior study comparison: June 26, 2020, bilateral MG 3d screening mammo w/cad. May 19, 2019, bilateral MG 3d screening mammo w/cad. The breast tissue is heterogeneously dense. This may lower the sensitivity of mammography. Stable post operative distortion left breast. No significant changes when compared with prior studies. ASSESSMENT: Benign, BI-RAD 2 RECOMMENDATION: Routine screening mammogram of both breasts in 1 year.
== END | disposition home or self-care (01) ==
LOC: RADMAMWWP 15:50
PROVIDERS: ATTEND Internal Medicine
DX: Z12.31 Encounter for screening mammogram for malignant neoplasm of breast (principal); Z78.0 Asymptomatic menopausal state
CPT/HCPCS: 77063; 77067

== ENCOUNTER → 2022-12-27 | Outpatient (CLI) | payer MEDICARE ==
--- NOTE | 2023-01-30 21:07 | EM ---
EVENT MONITOR The patient was monitored between December 28, 2022 and January 25, 2023. The rhythm strip revealed a sinus mechanism with normal conduction. No atrial fibrillation was noted. No pauses were noted. Symptoms of shortness of breath and heart pounding did not correlate with any dysrhythmia. The patient had an episode of short burst of supraventricular tachycardia that was asymptomatic. MMJESUS / LISANDRAN: [id number] /
== END | disposition home or self-care (01) ==
LOC: RADECHMAIN 08:11
PROVIDERS: ATTEND Internal Medicine
DX: I47.1 Supraventricular tachycardia (principal); R55 Syncope and collapse
CPT/HCPCS: 93270

== ENCOUNTER → 2023-01-01 | Outpatient (CLI) | payer MEDICARE ==
--- NOTE | 2023-01-01 12:55 | MR ---
EXAMINATION TYPE: MR brain wo/w con DATE OF EXAM: 01/01/2023 12:35 PM COMPARISON: NONE HISTORY: Syncope, collapse CONTRAST: Patient received 10 mL intravenous gadolinium contrast. Multiplanar and multispin-echo imaging of the brain was performed . Pre and post contrast enhanced i mages are obtained. The ventricles, basal cisterns and sulci overlying the cerebral convexities are mildly enlarged. There is evidence of mild periventricular white matter ischemic demyelination. Remote deep white matter insults are also noted. No acute edema is seen on diffusion weighted imaging. There is no evidence for midline shift or mass effect. Acute intracranial hemorrhage or extra-axial collection is not evident. No enhancing lesions are seen. The paranasal sinuses and mastoid air cells are well-aerated. IMPRESSION: Age-related atrophic and chronic small vessel ischemic change. No acute intracranial process at this time. No enhancing lesions are seen.
== END | disposition home or self-care (01) ==
LOC: RADMRIMAIN 10:53
PROVIDERS: ATTEND Internal Medicine
DX: G31.1 Senile degeneration of brain, not elsewhere classified (principal); I67.82 Cerebral ischemia; R55 Syncope and collapse
CPT/HCPCS: 70553; A9585

== ENCOUNTER → 2023-11-10 | Outpatient (CLI) | payer MEDICARE ==
--- NOTE | 2023-11-10 19:34 | MM ---
Reason for Exam: Screening (asymptomatic). Last screening mammogram was performed 12 month(s) ago. Patient History: Menarche at age 12. First Full-Term at age 23. Left ovary removed at age 50. Right ovary removed at age 50. Hysterectomy at age 50. Postmenopausal. Estrogen for 10 years from age 50 until age 60. Benign Excisional Biopsy on the right side. Benign Excisional Biopsy on the right side. Benign Excisional Biopsy on the right side. Benign Excisional Biopsy on the right side. Benign Excisional Biopsy on the left side. Benign Excisional Biopsy on the left side. Benign Excisional Biopsy on the left side. 11/19/2010, Benign Core Biopsy on the right side. Risk Values: Bhavani 5 year model risk: 2.6%. NCI Lifetime model risk: 4.9%. Prior Study Comparison: 06/26/2020 Bilateral Screening Mammogram, [facility]. 07/24/2021 Bilateral Screening Mammogram, [facility]. 10/31/2022 Bilateral MG 3D screening mammo w/cad, [facility]. Tissue Density: There are scattered areas of fibroglandular density. Findings: Analyzed By CAD. Microclip right breast from prior biopsy. A mole noted far posteriorly inferior left breast. No significant change from prior exams. Overall Assessment: Benign, BI-RAD 2 Management: Screening Mammogram of both breasts in 1 year. . Patient should continue monthly self-breast exams. A clinical breast exam by your physician is recommended on an annual basis. This exam should not preclude additional follow-up of suspicious palpable abnormalities. Note on Bhavani scores and lifetime risk: 1. A Bhavani score greater than 3% is considered moderate risk. If this is the case, consider specialist referral to assess eligibility for a risk reducing agent. 2. If overall lifetime risk for the development of breast cancer is 20% or higher, the patient may qualify for future screening with alternating mammogram and breast MRI. Electronically signed and approved by: Fish Carter M.D. Radiologist
== END | disposition home or self-care (01) ==
LOC: RADMAMWWP 11:22
PROVIDERS: ATTEND Internal Medicine
DX: Z12.31 Encounter for screening mammogram for malignant neoplasm of breast (principal); Z78.0 Asymptomatic menopausal state
CPT/HCPCS: 77063; 77067

== ENCOUNTER → 2024-06-11 | Outpatient (CLI) | payer MEDICARE ==
--- NOTE | 2024-06-11 09:30 | FL ---
EXAMINATION TYPE: FL barium swallow DATE OF EXAM: 06/11/2024 8:52 AM COMPARISON: None CLINICAL INDICATION:Female, 78 years old with history of R13.19 ESOPHAGEAL DYSPHAGIA; PHH, TECHNIQUE: The procedure was explained and patient history elicited. All patient questions were ans wered prior to start of procedure. Multiple spot fluoroscopic images of the esophagus were obtained a fter the oral ingestion of effervescent crystals and liquid barium as the contrast agent. Fluoroscopic time:54 sec Fluoroscopic images:0 Radiographs taken: 195 DAP: NOT REPORTED [id number] FINDINGS: The esophagus demonstrates normal primary and secondary peristalsis. Tertiary contractions are seen w ith delayed emptying of the esophageal contents. The esophageal mucosa is smooth without evidence of focal stricture, ulceration, or abnormal outpouching. No gastroesophageal reflux disease was identif ied IMPRESSION: Esophageal dysmotility. [facility], , 06/11/2024 9:27 AM
--- NOTE | 2024-06-11 10:29 | US ---
EXAMINATION TYPE: US carotid duplex BILAT DATE OF EXAM: 06/11/2024 COMPARISON: US(05/19/2019) CLINICAL INDICATION: Female, 78 years old with history of I65.23 CAROTID STENSOIS BILATERAL; Esophoge al Dysphagia Additional History: .... TECHNIQUE: Grayscale, color Doppler and spectral Doppler evaluation of the bilateral carotid systems and vertebral arteries. Indirect Doppler criteria was utilized. FINDINGS: EXAM MEASUREMENTS: RIGHT: Peak Systolic Velocity (PSV) cm/sec ----- Right CCA: 63.2 ----- Right ICA: 170 ----- Right ECA: 101 ICA/CCA ratio: 2.7 RIGHT: End Diastole cm/sec ----- Right CCA: 19.2 ----- Right ICA: 48.0 ----- Right ECA: 16.3 LEFT: Peak Systolic Velocity (PSV) cm/sec ----- Left CCA: 71.0 ----- Left ICA: 98.8 ----- Left ECA: 98.8 ICA/CCA ratio: 1.4 LEFT: End Diastole cm/sec ----- Left CCA: 18.8 ----- Left ICA: 12.3 ----- Left ECA: 12.3 VERTEBRALS (direction of flow): Right Vertebral: Antegrade Left Vertebral: Antegrade Rhythm: Normal FITNESS LEADER NOTES: Elevated Velocity noted in Rt Mid & Distal ICA Color Doppler imaging shows patency with blood flow throughout the carotid artery. Spectral waveforms are within normal limits. IMPRESSION: Right: 50-69% stenosis of the carotid bifurcation. Left: No hemodynamically significant stenosis. Criteria for Assigning % of Stenosis / Diameter reduction (Estimation based on the indirect measurements of the internal carotid artery velocities (ICA PSV). 1. Normal (no stenosis)=ICA PSV < 125 cm/s: ratio < 2.0: ICA EDV<40 cm/s. 2. Less than 50% stenosis=ICA PSV < 125 cm/s: ratio < 2.0: ICA EDV<40 cm/s. 3. 50 to 69% stenosis=ICA PSV of 125 to 230 cm/s: ration 2.0 ? 4.0: ICA EDV 40-100 cm/s. 4. Greater than 70% stenosis to near occlusion= ICA PSV > 230 cm/s: ratio > 4.0: ICA EDV > 100 cm/s. 5. Near occlusion= ICA PSV velocities may be low or undetectable: variable ratio and ICA EDV. 6. Total occlusion=unable to detect flow. [facility], , 06/11/2024 10:27 AM
== END | disposition home or self-care (01) ==
LOC: RADFLMAIN 08:03
PROVIDERS: ATTEND Internal Medicine
DX: K22.4 Dyskinesia of esophagus (principal); I65.23 Occlusion and stenosis of bilateral carotid arteries; R13.19 Other dysphagia
CPT/HCPCS: 74220; 93880

== ENCOUNTER → 2024-07-09 | Outpatient (CLI) | payer MEDICARE ==
--- NOTE | 2024-07-11 13:40 | NM ---
EXAMINATION TYPE: NM DatScan Brain SPECT DATE OF EXAM: 07/09/2024 COMPARISON: MRI brain January 01, 2023 CLINICAL INDICATION: Female, 78 years old with history of R25.1 TREMOR, UNSPECIFIED; TECHNIQUE: 10 drops of Lugol's solution was administered 1 hour prior to injection as a thyroid bloc eva agent. After the administration of 4.4 mCi I-123 Ioflupane DaTscan. Images obtained [address] injection. SPECT images of the brain were acquired with axial and coronal reconstructions. FINDINGS: The DaTSCAN demonstrates normal uptake of tracer throughout the bilateral striata. Consequently there is no evidence of loss of the pre-synaptic dopaminergic terminals on this investig ation. IMPRESSION: This normal appearance is against a diagnosis of idiopathic Parkinson?s disease (PD) or a Parkinsoni an syndrome (PS) and is seen in healthy individuals and also patients with essential tremor(ET), drug induced parkinsonism, and vascular pseudo-parkinsonism. [facility], , 07/11/2024 1:37 PM
== END | disposition home or self-care (01) ==
LOC: RADNMMAIN 10:38
PROVIDERS: ATTEND Internal Medicine
DX: I65.23 Occlusion and stenosis of bilateral carotid arteries (principal); G20.A1 Parkinson's disease without dyskinesia, without mention of fluctuations; G21.19 Other drug induced secondary parkinsonism; G25.0 Essential tremor; R13.19 Other dysphagia
CPT/HCPCS: 78803; A9584

== ENCOUNTER → 2024-10-06 | Outpatient (CLI) | payer MEDICARE ==
[2024-10-06 14:16] LABS: African American GFR (CKD) >90 (>60 ml/min/1.73 sqM); Blood Urea Nitrogen 18 mg/dL (7-17); Non-African American GFR(CKD) 87 (>60 ml/min/1.73 sqM)
--- NOTE | 2024-10-06 16:06 | CT ---
EXAMINATION TYPE: CT angio head neck DATE OF EXAM: 10/06/2024 COMPARISON: CT neck dated 05/11/2014 CLINICAL INDICATION: Female, 78 years old with history of I65.23 CAROTID STENOSIS; PHH, Difficulty sw allowing, hx of carotid stenosis TECHNIQUE: CTA scan of the head and neck is performed without and with IV Contrast, patient injected with 65 mL of Isovue 370, axial images are obtained, coronal and sagittal reformatted images are rev iewed. 3D reconstructed images are created on an independent workstation and reviewed. CT DLP: 1368.[address] CTDI: mGy Automated exposure control for dose reduction was used. NASCET criteria was used in interpretation of this exam? FINDINGS: The brachiocephalic origins are widely patent and no significant stenosis. There is mild calcified plaque of the carotid bifurcations but there is no significant stenosis of th e common or internal carotid arteries within the neck. There is no stenosis of the vertebral arteries . Intracranially, there is no stenosis, segmental occlusion, sizable aneurysm sac or vascular malformat ion. IMPRESSION:. 1. No significant carotid stenosis within the neck. 2. No segmental occlusion, sizable aneurysm or vascular malformation intracranially. NASCET criteria was used in interpretation of this exam? [facility], , 10/06/2024 4:04 PM
== END | disposition home or self-care (01) ==
LOC: RADCTMAIN 13:25
PROVIDERS: ATTEND Internal Medicine
DX: I65.23 Occlusion and stenosis of bilateral carotid arteries (principal)
CPT/HCPCS: 82565; 84520; 70496; 70498; 36415; Q9967

== ENCOUNTER → 2024-12-30 | Outpatient (CLI) | payer MEDICARE ==
--- NOTE | 2024-12-30 11:48 | MM ---
Reason for Exam: Screening (asymptomatic). Last mammogram was performed 1 year(s) and 2 month(s) ago. Patient History: Menarche at age 12. First Full-Term at age 23. Left ovary removed at age 50. Right ovary removed at age 50. Hysterectomy at age 50. Postmenopausal. Estrogen for 10 years from age 50 until age 60. Benign Excisional Biopsy on the right side. Benign Excisional Biopsy on the right side. Benign Excisional Biopsy on the right side. Benign Excisional Biopsy on the right side. Benign Excisional Biopsy on the left side. Benign Excisional Biopsy on the left side. Benign Excisional Biopsy on the left side. 11/19/2010, Benign Core Biopsy on the right side. Risk Values: Bhavani 5 year model risk: 2.5%. NCI Lifetime model risk: 4.5%. Prior Study Comparison: 07/24/2021 Bilateral Screening Mammogram, [facility]. 10/31/2022 Bilateral MG 3D screening mammo w/cad, [facility]. 11/10/2023 Bilateral MG 3D screening mammo w/cad, [facility]. Tissue Density: There are scattered areas of fibroglandular density. Findings: Analyzed By CAD. Microclip right breast from prior biopsy. There is no suspicious group of microcalcifications or new suspicious mass in either breast. Overall Assessment: Negative, BI-RAD 1 Management: Screening Mammogram of both breasts in 1 year. Patient should continue monthly self-breast exams. A clinical breast exam by your physician is recommended on an annual basis. This exam should not preclude additional follow-up of suspicious palpable abnormalities. Note on Bhavani scores and lifetime risk: 1. A Bhavani score greater than 3% is considered moderate risk. If this is the case, consider specialist referral to assess eligibility for a risk reducing agent. 2. If overall lifetime risk for the development of breast cancer is 20% or higher, the patient may qualify for future screening with alternating mammogram and breast MRI. [facility], , 12/30/2024 11:45 AM. Electronically signed and approved by: Fish Carter M.D. Radiologist
--- NOTE | 2024-12-30 12:39 | CA ---
Transthoracic Echo Report Name: Traci Gavin Age: 79 Gender: F : 1945 Exam Date: 12/30/2024 11:35 Exam Location: [facility] Ht (in): 65 Wt (lb): 196 Ordering Physician: Jacqueline Berry MD Attending/Referring Phys: Jacqueline Berry MD [employer] Supervisor William Pacheco RDSCOTT Procedure CPT: Indications: I35.1 MID AORTIC REGURGITATION Cardiac Hx: Technical Quality: Fair Contrast 1: Total Dose (mL): Contrast 2: Total Dose (mL): MEASUREMENTS (Male / Female) Normal Values 2D ECHO LV Diastolic Diameter PLAX 5.3 cm 4.2 - 5.9 / 3.9 - 5.3 cm LV Systolic Diameter PLAX 2.6 cm IVS Diastolic Thickness 1.1 cm 0.6 - 1.0 / 0.6 - 0.9 cm LVPW Diastolic Thickness 1.0 cm 0.6 - 1.0 / 0.6 - 0.9 cm LV Relative Wall Thickness 0.4 RV Internal Dim ED PLAX 2.8 cm LVOT Diameter 1.6 cm LA Systolic Diameter LX 4.0 cm 3.0 - 4.0 / 2.7 - 3.8 cm LV Diastolic Volume MOD BP 85.3 cm??? 67 - 155 / 56 - 104 cm??? LV Systolic Volume MOD BP 33.5 cm??? - 58 / 19 - 49 cm??? LV Ejection Fraction MOD BP 60.8 % >= 55 % LV Cardiac Index MOD BP 1843.7 cm???/min???m??? LV Diastolic Volume MOD 4C 77.7 cm??? LV Systolic Volume MOD 4C 30.2 cm??? LV Ejection Fraction MOD 4C 61.2 % LV Cardiac Index MOD 4C 1689.4 cm???/min???m??? LV Diastolic Length 4C 7.3 cm LV Systolic Length 4C 5.9 cm LV Diastolic Volume MOD 2C 92.7 cm??? LV Systolic Volume MOD 2C 37.0 cm??? LV Ejection Fraction MOD 2C 60.1 % LV Cardiac Index MOD 2C 1983.1 cm???/min???m??? LV Diastolic Length 2C 7.4 cm LV Systolic Length 2C 5.8 cm LA Volume 76.5 cm??? 18 - 58 / 22 - 52 cm??? LA Volume Index 37.3 cm???/m??? 16 - 28 cm???/m??? DOPPLER MV Area PHT 3.4 cm??? Mitral E Point Velocity 82.0 cm/s Mitral A Point Velocity 66.4 cm/s Mitral E to A Ratio 1.2 MV Deceleration Time 224.8 ms TR Peak Velocity 285.9 cm/s TR Peak Gradient 32.7 mmHg Right Atrial Pressure 5.0 mmHg Pulmonary Artery Systolic Pressu 37.7 mmHg Right Ventricular Systolic Press 37.7 mmHg FINDINGS Left Ventricle Left ventricular ejection fraction is estimated at 65%. Mild concentric left ventricular hypertrophy. Left ventricular cavity size normal. No obvious regional wall motion abnormalities. Right Ventricle Normal right ventricular size and function. Mild pulmonary hypertension. Right ventricular systolic pressure estimated at 38 mm hg. Right Atrium Normal right atrial size. Left Atrium Mildly increased left atrial diameter. Moderately increased left atrial volume. Mildly increased left atrial area. Mitral Valve Structurally normal mitral valve. No mitral stenosis. Trace mitral regurgitation. Aortic Valve Aortic valve not well visualized. No aortic stenosis. Trace to mild aortic regurgitation. Tricuspid Valve Structurally normal tricuspid valve. No tricuspid stenosis. Trace tricuspid regurgitation. Pulmonic Valve Structurally normal pulmonic valve. No pulmonic stenosis. Trace pulmonic regurgitation. Pericardium Minimal pericardial effusion (normal variant). Aorta Normal size aortic root and proximal ascending aorta. CONCLUSIONS Normal LV function Mild pulmonary hypertension Mild aortic regurgitation Previewed by: Dr. Haresh Adan MD (Electronically Signed) Final Date: 30 December 2024 12:38
== END | disposition home or self-care (01) ==
LOC: RADMAMWWP 10:45
PROVIDERS: ATTEND Internal Medicine
DX: Z12.31 Encounter for screening mammogram for malignant neoplasm of breast (principal); R92.323 Mammographic fibroglandular density, bilateral breasts; I35.1 Nonrheumatic aortic (valve) insufficiency; Z78.0 Asymptomatic menopausal state; I27.20 Pulmonary hypertension, unspecified
CPT/HCPCS: 77063; 77067; 93306